=== PATIENT | female | born 1965 | race Caucasian/White ===

== ENCOUNTER 2020-09-08 09:04 | Outpatient (CLI) | payer BC, SELFPAY ==
--- NOTE | ~2020-09-08 | MM_ITS ---
EXAMINATION: MM screening [facility] BI w jeremie HISTORY: Screening mammogram TECHNIQUE: Craniocaudal and mediolateral oblique 3-D tomosynthesis images were obtained and synthetic 2-D images were generated. CAD analysis was submitted and interpreted. COMPARISON: 08/11/2019, 01/20/2018, 01/06/2015 BREAST PARENCHYMAL COMPOSITION: There are scattered areas of fibroglandular density. FINDINGS: There is no evidence of suspicious mass, calcification, or architectural distortion to sugg est malignancy in either breast. There has been no suspicious interval change. IMPRESSION: 1. No mammographic evidence of malignancy. 2. Recommend routine screening mammography in one year. BI-RADS Category 1: Negative Reviewed, dictated and finalized at location A. WORKER
== END 2020-09-08 09:05 | disposition home or self-care (01) ==
LOC: ANHIMG 09:08
PROVIDERS: PCP Internal Medicine; Visit Provider Nurse Practitioner Obstetrics & Gynecology
DX: Z12.31 Encounter for screening mammogram for malignant neoplasm of breast (principal)
CPT/HCPCS: 77063; 77067

== ENCOUNTER 2020-09-09 08:51 | Outpatient (CLI) | payer BC, SELFPAY ==
--- NOTE | ~2020-09-09 | XR_ITS ---
EXAMINATION: XR lumbar spine 2-3V DATE: 09/09/2020 09:15 INDICATION: Low back pain. TECHNIQUE: 3 views of lumbar spine were obtained. COMPARISON: None. FINDINGS: There is 26 degrees levoscoliosis of lumbar spine. Vertebral body heights are normal. There is severely decreased disc height at L2-L3. There are endplate osteophytes at all levels. There is m ultilevel facet joint osteoarthritis, severe on the right at L3-L4. There is an intrauterine device i n expected position. IMPRESSION: 1. Severe lumbar spondylosis. 2. Lumbar levoscoliosis. Reviewed, dictated and finalized at location A. TUTOR
--- NOTE | ~2020-09-09 | XR_ITS ---
EXAMINATION: XR hip RT min 2V DATE: 09/09/2020 09:15 INDICATION: Right hip pain. TECHNIQUE: 3 views of right hip were obtained. COMPARISON: None. FINDINGS: Bone alignment is normal. No fracture. There is mild right hip osteoarthritis characterized by a tiny marginal osteophyte. There is an intrauterine device in expected position. IMPRESSION: 1. Mild right hip osteoarthritis. Reviewed, dictated and finalized at location A. SKILLS COORDINATOR
== END 2020-09-09 08:52 | disposition home or self-care (01) ==
PROVIDERS: PCP Internal Medicine; Visit Provider Nurse Practitioner
DX: M47.816 Spondylosis without myelopathy or radiculopathy, lumbar region (principal); M16.11 Unilateral primary osteoarthritis, right hip; M41.9 Scoliosis, unspecified
CPT/HCPCS: 72100; 73502

== ENCOUNTER → 2021-06-28 14:52 | Outpatient (CLI) | payer BC, SELFPAY ==
--- NOTE | ~2021-06-28 | XR_ITS ---
EXAMINATION: XR hip RT 2V w AP pelvis DATE: 06/28/2021 15:14 INDICATION: Right hip pain. TECHNIQUE: An anteroposterior view of the pelvis and 2 views of right hip were obtained. COMPARISON: Right hip radiographs 09/09/2020 FINDINGS: There is lumbar levoscoliosis and mild spondylosis. No fracture. There is mild osteoarthrit is of the hips. IMPRESSION: 1. Mild osteoarthritis of the hips. Reviewed, dictated and finalized at location A.
== END ==
PROVIDERS: Visit Provider Nurse Practitioner Adult Health
DX: M17.11 Unilateral primary osteoarthritis, right knee (principal); M47.816 Spondylosis without myelopathy or radiculopathy, lumbar region; M41.9 Scoliosis, unspecified
CPT/HCPCS: 73502

== ENCOUNTER 2021-11-03 07:56 | Outpatient (CLI) | payer OTHER, SELFPAY ==
--- NOTE | ~2021-11-03 | MM_ITS ---
EXAMINATION: MM screening [facility] BI w jeremie HISTORY: Screening mammogram TECHNIQUE: Craniocaudal and mediolateral oblique 3-D tomosynthesis images were obtained and synthetic 2-D images were generated. CAD analysis was submitted and interpreted. COMPARISON: 09/08/2020, 08/11/2019, 01/20/2018 BREAST PARENCHYMAL COMPOSITION: There are scattered areas of fibroglandular density. FINDINGS: There is no evidence of suspicious mass, calcification, or architectural distortion to sugg est malignancy in either breast. There has been no suspicious interval change. IMPRESSION: 1. No mammographic evidence of malignancy. 2. Recommend routine screening mammography in one year. BI-RADS Category 1: Negative Reviewed, dictated and finalized at location A. ON INVESTIGATOR
== END 2021-11-03 07:57 | disposition home or self-care (01) ==
LOC: ANHIMG 07:59
PROVIDERS: PCP Internal Medicine; Visit Provider Nurse Practitioner Obstetrics & Gynecology
DX: Z12.31 Encounter for screening mammogram for malignant neoplasm of breast (principal)
CPT/HCPCS: 77063; 77067

== ENCOUNTER 2022-06-04 10:11 | Emergency (ER) | payer OTHER, SELFPAY ==
--- NOTE | ~2022-06-04 | XR_ITS ---
XR foot RT min 3V 06/04/2022 11:38 INDICATION: Right foot pain PROCEDURE: 4 views right foot COMPARISON: No prior studies for comparison. FINDINGS: Fracture, dislocation or subluxation is not identified. Lisfranc joint intact. Mild osteoar thritis of the first MTP joint. The soft tissues appear within normal limits. No foreign bodies are identified. There is a small degenerative calcaneal enthesophyte. IMPRESSION: 1: NO ACUTE BONE OR JOINT ABNORMALITY IDENTIFIED. Reviewed, dictated and finalized at location A.
--- NOTE | ~2022-06-04 | XR_ITS ---
EXAMINATION: XR foot LT min 3V DATE: 06/04/2022 11:32 INDICATION: Left foot injury. TECHNIQUE: 4 views of left foot were obtained. COMPARISON: None. FINDINGS: Bone alignment is normal. No fracture. There is mild osteoarthritis of first metatarsophala ngeal joint. There is an enthesophyte at plantar aspect of calcaneal tuberosity. IMPRESSION: 1. Mild osteoarthritis of first metatarsophalangeal joint. Reviewed, dictated and finalized at location A.
[2022-06-04 10:20] VITALS: BP 152/84; PULSE 69; RESP 16; TEMP 36.4; O2SAT 100
--- NOTE | 2022-06-04 10:25 | ED.LOWEXIN ---
HPI - Extremity Injury (Lower) General Chief Complaint: Extremity Injury, Lower <Anahy Cruz APRN - Last Filed: 06/04/22 15:06> Stated Complaint: Feet Pain <Anahy Cruz APRN - Last Filed: 06/04/22 15:06> Time Seen by Provider: 06/04/22 10:20 <Anahy Cruz APRN - Last Filed: 06/04/22 15:06> Source: patient, RN notes reviewed and old records reviewed <Anahy Cruz APRN - Last Filed: 06/04/22 15:06> Mode of arrival: ambulatory <Anahy Cruz APRN - Last Filed: 06/04/22 15:06> Limitations: no limitations <Anahy Cruz APRN - Last Filed: 06/04/22 15:06> History of Present Illness HPI Narrative: 57-year-old female presents to the [facility] with bilateral feet pain after rolling her ankle and falling onto her feet last night. Patient is complaining of left lateral fifth metatarsal pain. Right first metatarsal pain Has taken Tylenol for her symptoms. Sensation intact in all 5 toes bilaterally. Positive pedal pulses bilaterally. Capillary refill under 2 seconds. Small abrasion noted to the lateral aspect fifth toe. Patient reports last Tdap 1 year ago <Anahy Cruz APRN - Last Filed: 06/04/22 15:06> MD complaint: foot injury (Bilateral) <Anahy Cruz APRN - Last Filed: 06/04/22 15:06> Onset (ago): day(s) (1) <Anahy Cruz APRN - Last Filed: 06/04/22 15:06> Related Data Home Medications: Home Medications Medication Instructions Recorded Confirmed biotin 1 mg capsule 1 mg PO DAILY 09/08/20 11/03/21 <Anahy Cruz APRN - Last Filed: 06/04/22 15:06> Allergies/Adverse Reactions: Allergies Allergy/AdvReac Type Severity Reaction Status Date / Time codeine Allergy Unknown hives Verified 06/04/22 10:49 hydrocodone Allergy Unknown nausea Verified 06/04/22 10:49 Penicillins Allergy Unknown rash Verified 06/04/22 10:49 Sulfa (Sulfonamide Allergy Unknown rash Verified 06/04/22 10:49 Antibiotics) 1. [id number] Allergy Unknown hot flashes Uncoded 06/04/22 10:49 ERYTHROMYCIN (Generic Allergy unknown Uncoded 06/04/22 10:49 Allergy) MACROLIDES Allergy unknown Uncoded 06/04/22 10:49 <Anahyraquel Cruz MEAT SUPERVISOR - Last Filed: 06/04/22 15:06> Review of Systems Review of Systems: All systems reviewed & are unremarkable except as noted in HPI and below <Anahy Cruz, MEAT SUPERVISOR - Last Filed: 06/04/22 15:06> Constitutional: Constitutional: Reports no additional constitutional complaints, Denies chills and Denies fever(s) <Anahyraquel Cruz, MEAT SUPERVISOR - Last Filed: 06/04/22 15:06> Eyes: Eyes: Reports no additional eye complaints <Anahyraquel Cruz, MEAT SUPERVISOR - Last Filed: 06/04/22 15:06> ENT: Reports system reviewed and no additional complaints, except as documented <Anahy Cruz, MEAT SUPERVISOR - Last Filed: 06/04/22 15:06> Cardiovascular: Cardiovascular: Reports no additional cardiovascular complaints <Anahy Cruz, MEAT SUPERVISOR - Last Filed: 06/04/22 15:06> Respiratory: Respiratory: Reports no additional respiratory complaints <Anahyraquel Cruz, MEAT SUPERVISOR - Last Filed: 06/04/22 15:06> Gastrointestinal: Gastrointestinal: Reports no additional gastrointestinal complaints <Anahyraquel Cruz, MEAT SUPERVISOR - Last Filed: 06/04/22 15:06> Musculoskeletal: Musculoskeletal: Reports as per HPI, Reports arthralgias and Reports joint swelling <Anahyraquel Cruz, MEAT SUPERVISOR - Last Filed: 06/04/22 15:06> Integumentary/Breasts: Skin/Breast: Reports as per HPI <Anahy Cruz, MEAT SUPERVISOR - Last Filed: 06/04/22 15:06> Comments: Abrasion fifth toe, lateral aspect <Anahy Cruz MEAT SUPERVISOR - Last Filed: 06/04/22 15:06> Neurologic: Reports system reviewed and no additional complaints, except as documented <Anahy Cruz, MEAT SUPERVISOR - Last Filed: 06/04/22 15:06> Psychiatric: Psychiatric: Reports no additional psychiatric complaints <Anahy Cruz APRN - Last Filed: 06/04/22 15:06> Allergic/Immunologic: Allergic/Immunologic: Reports no additional allergic/immunologic complaints <Anahy Cruz, A
== END 2022-06-04 12:08 | disposition home or self-care (01) ==
PROVIDERS: Emergency Provider Nurse Practitioner; PCP Internal Medicine
DX: S90.415A Abrasion, left lesser toe(s), initial encounter (principal); W19.XXXA Unspecified fall, initial encounter; S90.32XA Contusion of left foot, initial encounter; S90.31XA Contusion of right foot, initial encounter; M19.072 Primary osteoarthritis, left ankle and foot; R01.1 Cardiac murmur, unspecified; E78.00 Pure hypercholesterolemia, unspecified; I10 Essential (primary) hypertension
CPT/HCPCS: 73630; 99214; G0463

== ENCOUNTER 2022-07-11 12:54 | Outpatient (CLI) | payer OTHER, SELFPAY ==
[2022-07-11 18:35] LABS: Basophils Percent Auto 0.4 % (0.2-1.2); Eosinophils Absolute Auto 0.1 K/mm3 (0-0.3); Eosinophils Percent Auto 1.5 % (0-4.4); Hematocrit 36.5 % (37.0-47.0); Hemoglobin 12.2 g/dL (12.0-15.0); Immature Granulocyte Absolute 0.02 K/mm3 (0.00-0.031); Immature Granulocyte Percent A 0.3 % (0-0.5); Lymphocytes Absolute Auto 2.69 K/mm3 (0.9-3.2); Lymphocytes Percent Auto 39.9 % (18.3-44.2); Mean Corpuscular HGB Conc 33.4 g/dl (32-36); Mean Corpuscular Hemoglobin 32.7 pg (26-34); Mean Corpuscular Volume 97.9 fl (80-100); Mean Platelet Volume 11.4 fl (7.4-10.4); Monocytes Absolute Auto 0.5 K/mm3 (0.1-0.6); Monocytes Percent Auto 6.7 % (2.6-8.5); Neutrophils Absolute Auto 3.5 K/mm3 (1.3-6.7); Neutrophils Percent Auto 51.2 % (45.5-73.1); Platelet Count Result 199 k/mm3 (150-375); Red Blood Count 3.73 M/mm3 (4.2-5.4); Red Cell Distribution Width 12.6 % (11.5-14.5); White Blood Count 6.7 K/mm3 (4.5-10.0)
[2022-07-11 18:39] LABS: Alanine Aminotransferase 87 U/L (6-35); Albumin Level 4.6 g/dL (3.5-5.1); Alkaline Phosphatase 67 U/L (38-126); Anion Gap 14 mmol/L (8-16); Aspartate Amino Transferase 70 U/L (14-36); Bilirubin,Total 0.4 mg/dL (0.2-1.3); Blood Urea Nitrogen 13 mg/dL (7-17); Calcium 9.1 mg/dL (8.4-10.2); Carbon Dioxide 28 mmol/L (22-30); Chloride 100 mmol/L (98-107); Estimated Glomerular Filt Rate > 60; Glucose 88 mg/dL (65-110); Potassium 3.8 mmol/L (3.4-5.0); Sodium 142 mmol/L (137-145)
[2022-07-11 18:56] LABS: Rheumatoid Factor < 8.6 IU/ML (<12)
[2022-07-11 19:09] LABS: Erythrocyte Sedimentation Rate 18 mm/hr (0-20)
[2022-07-15 08:46] LABS: ANA Cascade Screen Negative (Negative)
== END 2022-07-11 12:55 | disposition home or self-care (01) ==
LOC: ANHGOSHLAB 12:56
PROVIDERS: PCP Internal Medicine; Visit Provider Nurse Practitioner
DX: M25.50 Pain in unspecified joint (principal); R51.9 Headache, unspecified; Z51.81 Encounter for therapeutic drug level monitoring; Z79.899 Other long term (current) drug therapy
CPT/HCPCS: 36415; 80053; 84443; 85025; 85652; 86038; 86430

== ENCOUNTER 2022-07-31 14:00 | Outpatient (CLI) | payer OTHER, SELFPAY ==
--- NOTE | ~2022-07-31 | MR_ITS ---
EXAMINATION: MR brain/brain stem wo/w con DATE: 07/31/2022 14:52 INDICATION: Headache. TECHNIQUE: Magnetic resonance imaging (MRI) of the brain and brainstem was performed without and with 12 mL MultiHance intravenous contrast. COMPARISON: None. FINDINGS: There are scattered areas of nonspecific increased T2-weighted signal intensity in the cere bral white matter. There is no intracranial hemorrhage, acute infarction, or abnormal intracranial ma ss lesion. The ventricles are normal in size. There is mild mucosal thickening in sphenoid sinus. The orbits are normal. The mastoid air cells are normal. IMPRESSION: 1. Mild nonspecific cerebral white matter disease, which likely represents chronic small vessel ische renetta disease. Reviewed, dictated and finalized at location A. IMPRESSION: 1. Mild nonspecific cerebral white matter disease, which likely represents compliance investigator ivett small vessel ischemic disease.
== END 2022-07-31 14:01 ==
PROVIDERS: PCP Internal Medicine; Visit Provider Nurse Practitioner
DX: R51.9 Headache, unspecified (principal); R90.82 White matter disease, unspecified
CPT/HCPCS: 70553; A9577

== ENCOUNTER 2022-08-08 09:17 | Outpatient (CLI) | payer OTHER, SELFPAY | END 2022-08-08 09:18 | disposition home or self-care (01) | LOC: ANHGOSHLAB 09:20 | PROVIDERS: PCP Internal Medicine; Visit Provider Nurse Practitioner | DX: R74.8 Abnormal levels of other serum enzymes (principal); M25.50 Pain in unspecified joint | CPT/HCPCS: 36415 ==

== ENCOUNTER 2023-06-07 01:27 | Day surgery (SDC) | payer OTHER, SELFPAY ==
[2023-05-29 12:51] VITALS: BMI 26.6
[2023-06-07 08:10] VITALS: BP 149/76; PULSE 73; RESP 18; TEMP 36.2; O2SAT 100; BMI 26.9
[2023-06-07] MEDS: LACTATED RINGERS 1,000 ML 150 ML IV CONT (08:26)
--- NOTE | 2023-06-07 08:45 | PM.HPGS ---
History of Present Illness History of Present Illness Consent: Risks, benefits, and alternatives have been discussed and questions answered. Patient agrees to proceed with procedure. Chief complaint: neoplasm screening Narrative: Ina Metzger is a 58 year old female Presents for screening colonoscopy. Patient's current weight appetite and bowel movements are normal. Patient denies abdominal pain. She has had no bleeding. Family history noncontributory. Review of Systems Review of Systems: review of systems noncontributory. [facility] Past Medical History Medical History Alcohol abuse Anxiety Depression Heart murmur Hypercholesterolemia Hypertension Tachycardia Vitamin D deficiency Family History Family History Mother Diabetes mellitus Hypertension Father , September 2020 Family history of coronary artery disease Social History Social History Social History: Caffeine-non Smoking status: Never smoker Alcohol intake: current Drinks per week: 6 Alcohol use details: BEER Substance use: never Substance use type: does not use Living arrangements: with family Spiritual care concerns: No Meds Home Medications and Allergies Home Medications Medication Instructions Recorded Confirmed Type citalopram 10 mg tablet 10 mg PO DAILY #90 tabs 02/07/23 06/07/23 Rx ezetimibe 10 mg tablet (Zetia) 10 mg PO DAILY #90 tabs 02/07/23 06/07/23 Rx losartan 100 mg tablet 100 mg PO DAILY #90 tabs 02/07/23 06/07/23 Rx hydrochlorothiazide 12.5 mg tablet 12.5 mg PO DAILY #30 tabs 05/30/23 06/07/23 Rx Allergies Allergy/AdvReac Type Severity Reaction Status Date / Time naproxen Allergy Mild Rash Verified 06/07/23 08:15 codeine Allergy Unknown hives Verified 06/07/23 08:15 hydrocodone Allergy Unknown nausea Verified 06/07/23 08:15 Penicillins Allergy Unknown rash Verified 06/07/23 08:15 Sulfa (Sulfonamide Allergy Unknown rash Verified 06/07/23 08:15 Antibiotics) sumatriptan [From Imitrex] AdvReac Mild Sore jaw Verified 06/07/23 08:15 1. cwfejn-vnwseeonl-ftfmod Allergy Unknown hot flashes Uncoded 06/07/23 08:15 ERYTHROMYCIN (Generic Allergy unknown Uncoded 06/07/23 08:15 Allergy) MACROLIDES Allergy unknown Uncoded 06/07/23 08:15 Vital Signs Vital Signs - 24 hr 06/07/23 08:10 Temperature 97.2 F L Pulse Rate 73 Respiratory Rate 18 Blood Pressure 149/76 H Pulse Oximetry 100 Oxygen Delivery Room Air Exam Narrative: Physical exam reveals patient to be alert. Vital signs stable. HEENT exam is unremarkable. Patient is anicteric. Lungs are clear to auscultation and percussion. Heart is without murmur or extra sounds. Abdomen bowel sounds are present soft nontender with no organomegaly. Digital external rectal exam is normal. Assessment and Plan Assessment and plan (1) Encounter for screening colonoscopy: Code(s): Z12.11 - Encounter for screening for malignant neoplasm of colon Status: Acute Assessment and Plan: Patient presents today for screening colonoscopy. She appears to be at average risk for colon polyps. Further recommendations may be given after endoscopy.
--- NOTE | 2023-06-07 08:52 | WPDANESEPPF ---
Anes - Initial Pre Proc Eval Procedure: Operation Date: 06/07/23 09:30 Proposed Procedures p Screening Colonoscopy - Elijah Neumann MD Date/Time: 06/07/23 08:52 Surgeon: Elijah Neumann MD Pre Op Diagnosis: neoplasm screening Patient Data Age: 58 Gender: F Height: 1.55 m Weight: 64.6 kg Last Vital Signs Temp 97.2 F L 06/07/23 08:10 Pulse 73 06/07/23 08:10 Resp 18 06/07/23 08:10 BP 149/76 H 06/07/23 08:10 Pulse Ox 100 06/07/23 08:10 O2 Del Method Room Air 06/07/23 08:10 Allergies Allergy/AdvReac Type Severity Reaction Status Date / Time naproxen Allergy Mild Rash Verified 06/07/23 08:15 codeine Allergy Unknown hives Verified 06/07/23 08:15 hydrocodone Allergy Unknown nausea Verified 06/07/23 08:15 Penicillins Allergy Unknown rash Verified 06/07/23 08:15 Sulfa (Sulfonamide Allergy Unknown rash Verified 06/07/23 08:15 Antibiotics) sumatriptan [From Imitrex] AdvReac Mild Sore jaw Verified 06/07/23 08:15 1. grztrx-zjzkecerm-swzejd Allergy Unknown hot flashes Uncoded 06/07/23 08:15 ERYTHROMYCIN (Generic Allergy unknown Uncoded 06/07/23 08:15 Allergy) MACROLIDES Allergy unknown Uncoded 06/07/23 08:15 Home Medications Medication Instructions Recorded Confirmed Type citalopram 10 mg tablet 10 mg PO DAILY #90 tabs 02/07/23 06/07/23 Rx ezetimibe 10 mg tablet (Zetia) 10 mg PO DAILY #90 tabs 02/07/23 06/07/23 Rx losartan 100 mg tablet 100 mg PO DAILY #90 tabs 02/07/23 06/07/23 Rx hydrochlorothiazide 12.5 mg tablet 12.5 mg PO DAILY #30 tabs 05/30/23 06/07/23 Rx Patient hx anesthesia problems: none Family hx anesthesia problems: none Results Review: All pre-operative results and documents have been reviewed as part of the pre-operative evaluation. [facility] Past Medical History Medical History Alcohol abuse Anxiety Depression Heart murmur Hypercholesterolemia Hypertension Tachycardia Vitamin D deficiency Family History Family History Mother Diabetes mellitus Hypertension Father , September 2020 Family history of coronary artery disease Social History Social History Social History: Caffeine-non Smoking status: Never smoker Alcohol intake: current Drinks per week: 6 Alcohol use details: BEER Substance use: never Substance use type: does not use Living arrangements: with family Spiritual care concerns: No Anes - Eval Final PreProcedure Day of Procedure 06/07/23 08:52 Patient weight: normal Heart: regular rate and rhythm Lungs: clear to auscultation Airway: Mallampati scale class II Neurological: alert and oriented Last oral intake: >/= 8 hours ASA classification: III Emergent: no Anesthetic plan: proceed Anesthesia type and monitoring: general GIVS and standard monitoring Results Review: All pre-operative results and documents have been reviewed as part of the pre-operative evaluation. Informed Consent: The patient's anesthetic plan and its attendant risks and benefits were discussed with the patient/family/POA. Questions were solicited and answers provided to the satisfaction of the patient/family/POA.
[2023-06-07] MEDS: SIMETHICONE ORAL SUSPENSION 20 MG/0.3 ML 30 ML BOTTLE 0.6 ML IRRIGATION (09:29)
[2023-06-07 09:39] VITALS: BP 134/74; PULSE 72; RESP 20; O2SAT 100
[2023-06-07 09:49] VITALS: BP 146/83; PULSE 60; RESP 16; O2SAT 100
[2023-06-07 09:59] VITALS: BP 160/85; PULSE 56; RESP 16; O2SAT 100
== END 2023-06-07 10:14 | disposition home or self-care (01) ==
PROVIDERS: PCP Internal Medicine; Visit Provider Internal Medicine Gastroenterology
PROC: 0DJD8ZZ Inspection of Lower Intestinal Tract, Via Natural or Artificial Opening Endoscopic (ICD-10-PCS; CPT 45378; principal; 2023-06-07 09:30)
DX: Z12.11 Encounter for screening for malignant neoplasm of colon (principal); I10 Essential (primary) hypertension; F41.9 Anxiety disorder, unspecified; F32.A Depression, unspecified; E78.00 Pure hypercholesterolemia, unspecified
CPT/HCPCS: 45378; J2704; J7120

== ENCOUNTER 2023-07-31 08:31 | Outpatient (CLI) | payer OTHER, SELFPAY ==
--- NOTE | ~2023-07-31 | MM_ITS ---
EXAMINATION: MM screening [facility] BI w jeremie HISTORY: Screening mammogram TECHNIQUE: Craniocaudal and mediolateral oblique 3-D tomosynthesis images were obtained and synthetic 2-D images were generated. CAD analysis was submitted and interpreted. COMPARISON: 11/03/2021, 09/08/2020, 08/11/2019 BREAST PARENCHYMAL COMPOSITION: There are scattered areas of fibroglandular density. FINDINGS: No suspicious mass, calcification, or architectural distortion are identified in either nydia ast to suggest malignancy. There has been no suspicious interval change. IMPRESSION: 1. No mammographic evidence of malignancy. 2. Recommend routine screening mammography in one year. BI-RADS Category 1: Negative Reviewed, dictated and finalized at location A.
== END 2023-07-31 08:32 | disposition home or self-care (01) ==
LOC: ANHIMG 08:34
PROVIDERS: PCP Internal Medicine; Visit Provider Nurse Practitioner Obstetrics & Gynecology
DX: Z12.31 Encounter for screening mammogram for malignant neoplasm of breast (principal)
CPT/HCPCS: 77063; 77067

== ENCOUNTER 2024-05-28 07:54 | Outpatient (CLI) | payer OTHER, SELFPAY ==
--- NOTE | ~2024-05-28 | US_ITS ---
Limited Abdominal Sonogram: Real-time sonographic imaging of the right upper quadrant was performed. Clinical History: Abnormal serum enzyme levels Findings: The liver appears echogenic, with no evidence of mass lesion or bile duct dilatation. Main portal vein demonstrates normal direction of flow. The gallbladder is partially distended, and appea rs normal with no evidence of gallstone or wall thickening. The common bile duct measures 6 mm. The visualized pancreas, aorta, and IVC are unremarkable. Right kidney measures 8.9 cm in length, without hydronephrosis. Impression: Diffuse fatty infiltration of the liver. Reviewed, dictated and finalized at location . Impression: Diffuse fatty infiltration of the liver.
== END 2024-05-28 07:55 ==
LOC: MICIMG 07:55
PROVIDERS: PCP Internal Medicine; Visit Provider Nurse Practitioner
DX: R74.8 Abnormal levels of other serum enzymes (principal); K76.0 Fatty (change of) liver, not elsewhere classified
CPT/HCPCS: 76705

== ENCOUNTER 2024-08-13 09:24 | Outpatient (CLI) | payer OTHER, SELFPAY ==
--- NOTE | ~2024-08-13 | XR_ITS ---
Lumbosacral Spine: AP and lateral views Clinical History: Pain Findings: Levoscoliosis noted. No fracture identified. There is grade 1 retrolisthesis of L2 over L3, with moderate to advanced degenerative disc narrowing at L2-L3. There is advanced facet arthropathy throughout the lumbar spine. The sacroiliac joints are normally outlined. Impression: Levoscoliosis with grade 1 retrolisthesis of L2 over L3. Additional degenerative change, as above. Reviewed, dictated and finalized at location . Impression: Levoscoliosis with grade 1 retrolisthesis of L2 over L3. Additional degenerative change, as above.
--- NOTE | ~2024-08-13 | XR_ITS ---
XR hip RT min 2V 08/13/2024 09:46 Indication: Right hip pain Procedure: 2 views right hip Comparison: 06/28/2021 Findings: There is no evidence for fracture, subluxation or dislocation. There is mild osteoarthritis of the right hip. No soft tissue abnormality. No foreign bodies. Impression: 1: Mild osteoarthritis of the right hip. Reviewed, dictated and finalized at location B. Impression: 1: Mild osteoarthritis of the right hip.
== END 2024-08-13 09:25 | disposition home or self-care (01) ==
PROVIDERS: PCP Internal Medicine; Visit Provider Nurse Practitioner
DX: M16.11 Unilateral primary osteoarthritis, right hip (principal); M41.86 Other forms of scoliosis, lumbar region
CPT/HCPCS: 72100; 73502

== ENCOUNTER 2024-08-28 12:48 | Outpatient (CLI) | payer OTHER, SELFPAY | END 2024-08-28 12:49 | disposition home or self-care (01) | PROVIDERS: PCP Internal Medicine; Visit Provider Nurse Practitioner | DX: H93.19 Tinnitus, unspecified ear (principal); H90.3 Sensorineural hearing loss, bilateral | CPT/HCPCS: 92557; 92567 ==

== ENCOUNTER 2024-12-31 10:42 | Outpatient (CLI) | payer OTHER, SELFPAY ==
--- NOTE | ~2024-12-31 | CT_ITS ---
EXAMINATION: CT lumbar spine wo con DATE: 12/31/2024 11:08 INDICATION: Other idiopathic scoliosis, thoracolumbar region. TECHNIQUE: Computed tomography (CT) of the lumbar spine was performed without intravenous contrast. A utomated exposure control and iterative reconstruction technique were employed. The dose-length produ ct was 532.74 mGy-cm. COMPARISON: Lumbar spine MRI 11/30/2024 FINDINGS: There is 31 degrees levoscoliosis of lumbar spine. Vertebral body heights are normal. There is severely decreased disc height at L2-L3. The following disc levels are specifically discussed: L1-L2: The disc is bulging. There is mild right and moderate left facet joint osteoarthritis. There i s mild left neural foraminal stenosis. There is mild central canal stenosis. L2-L3: The disc is bulging. There is mild bilateral facet joint osteoarthritis. There is mild bilater al neural foraminal stenosis. There is mild central canal stenosis. L3-L4: The disc is bulging. There is severe bilateral facet joint osteoarthritis. There is mild bilat eral neural foraminal stenosis. There is mild central canal stenosis. L4-L5: The disc is bulging. There is mild right and severe left facet joint osteoarthritis. There is mild bilateral neural foraminal stenosis. There is mild central canal stenosis. L5-S1: The disc is bulging. There is severe bilateral facet joint osteoarthritis. There is moderate r ight and mild left neural foraminal stenosis. There is mild central canal stenosis. IMPRESSION: 1. Severe lumbar spondylosis. 2. Lumbar levoscoliosis. Reviewed, dictated and finalized at location A. HOUSE MANAGER
--- NOTE | ~2024-12-31 | MR_ITS ---
EXAMINATION: MR cervical spine wo con DATE: 12/31/2024 11:21 INDICATION: Fusion of cervical region. Neck pain. TECHNIQUE: Magnetic resonance imaging (MRI) of the cervical spine was performed without intravenous c ontrast. COMPARISON: CT cervical spine 12/31/2024 FINDINGS: Alignment is normal. There are changes of anterior fusion procedure from C5 to C7 with heal ed interbody bone graft and anterior plate and screws. Vertebral body heights are normal. There is mi ldly decreased disc height at C4-C5 and moderately decreased disc height at C7-T1. The spinal cord si gnal intensity is normal. The following disc levels are specifically discussed: C2-C3: The disc does not extend beyond the endplate margin. There is mild left uncovertebral joint os teoarthritis. There is severe bilateral facet joint osteoarthritis. There is mild left neural foramin al stenosis. There is no central canal stenosis. C3-C4: The disc is bulging. There is mild bilateral uncovertebral joint osteoarthritis. There is nicolás re bilateral facet joint osteoarthritis. There is mild bilateral neural foraminal stenosis. There is mild central canal stenosis. C4-C5: The disc is bulging. There is severe bilateral uncovertebral joint osteoarthritis. There is se shaylee bilateral facet joint osteoarthritis. There is moderate bilateral neural foraminal stenosis. The re is mild central canal stenosis. C5-C6: There is mild bilateral uncovertebral joint hypertrophy. There is no facet joint hypertrophy. There is no neural foraminal stenosis. There is no central canal stenosis. C6-C7: There is mild left uncovertebral joint hypertrophy. There is no facet joint hypertrophy. There is no neural foraminal stenosis. There is no central canal stenosis. C7-T1: The disc is bulging. There is mild bilateral uncovertebral joint osteoarthritis. There is nicolás re bilateral facet joint osteoarthritis. There is mild bilateral neural foraminal stenosis. There is mild central canal stenosis. IMPRESSION: 1. Moderate cervical spondylosis. 2. Anterior fusion procedure from C5 to C7. Reviewed, dictated and finalized at location A. AMMUNITION INSPECTOR
--- NOTE | ~2024-12-31 | CT_ITS ---
EXAMINATION: CT cervical spine wo con DATE: 12/31/2024 11:08 INDICATION: Fusion of cervical region. Other idiopathic scoliosis, thoracolumbar region. TECHNIQUE: Computed tomography (CT) of the cervical spine was performed without intravenous contrast. Automated exposure control and iterative reconstruction technique were employed. The dose-length pro duct was 196.15 mGy-cm. COMPARISON: None FINDINGS: There is mild scarring at the lung apices. There is mild kyphosis of upper cervical spine. There are changes of anterior fusion procedure from C5 to C7 with healed interbody bone graft and ant erior plate and screws. There is mild chronic height loss of T1 vertebral body. There is mildly decre ased disc height at C4-C5 and moderately decreased disc height at C7-T1. The following disc levels ar e specifically discussed: C2-C3: There is mild left uncovertebral joint osteoarthritis. There is severe bilateral facet joint o steoarthritis. There is mild left neural foraminal stenosis. There is no central canal stenosis. C3-C4: There is mild bilateral uncovertebral joint osteoarthritis. There is severe bilateral facet lalitha int osteoarthritis. There is no neural foraminal stenosis. There is mild central canal stenosis. C4-C5: There is moderate bilateral uncovertebral joint osteoarthritis. There is severe bilateral face t joint osteoarthritis. There is mild bilateral neural foraminal stenosis. There is mild central paulo l stenosis. C5-C6: There is no uncovertebral joint hypertrophy. There is moderate facet joint hypertrophy. There is no neural foraminal stenosis. There is no central canal stenosis. C6-C7: There is mild left uncovertebral joint hypertrophy. There is no facet joint osteoarthritis. Th ere is mild left neural foraminal stenosis. There is mild central canal stenosis. C7-T1: There is moderate bilateral uncovertebral joint osteoarthritis. There is severe bilateral face t joint osteoarthritis. There is mild bilateral neural foraminal stenosis. There is mild central paulo l stenosis. IMPRESSION: 1. Moderate cervical spondylosis. 2. Anterior fusion procedure from C5 to C7. Reviewed, dictated and finalized at location A. [facility]
== END 2024-12-31 10:43 | disposition home or self-care (01) ==
LOC: MICIMG 10:43
PROVIDERS: PCP Internal Medicine
DX: M41.25 Other idiopathic scoliosis, thoracolumbar region (principal); M46.22 Osteomyelitis of vertebra, cervical region; Z98.1 Arthrodesis status; Z98.890 Other specified postprocedural states
CPT/HCPCS: 72125; 72131; 72141

== ENCOUNTER 2025-05-31 15:30 | Outpatient (RCR) | payer OTHER, SELFPAY ==
--- NOTE | 2025-04-07 11:02 | OPREHPOC ---
Outpatient Therapy Plan of Care This is a Multidisciplinary Plan of Care that may contain components documented by all disciplines (PT, OT, and ST.) PT Problem 1 PT Problem #1 Knowledge Deficit PT Goal 1 Goal / Goal Update 1* independent with HEP 2* demonstrate correct body mechanics with transfers and lifting from floor Target Visit 10 PT Problem 2 PT Problem #2 Pain PT Goal 1 Goal / Goal Update 1* pt report pain rating at worst of 5/10 2* pt report no awakening from sleep due to pain 3* radicular pain to R knee at worst Target Visit 10 PT Problem 3 PT Problem #3 Impaired Strength PT Goal 1 Goal / Goal Update increase strength of legs, to improve mobility and transfer skills * 1 R single leg standing x 20 seconds with good stability 2* standing bilateral PF x 20 reps with good balance 3* pt able to perform side lying hip abduction bilateral x 20 reps with good stability 4* pt report no issues with dressing due to leg weakness Target Visit 10 PT Problem 4 PT Problem #4 Impaired Functional Mobility PT Goal 1 Goal / Goal Update 1* 2 minute walking test distance of 425' Target Visit 10
--- NOTE | 2025-04-07 11:02 | PTOPEVAL1 ---
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 have not been doing any back or leg exercises, not sure what to do after surgery; have been walking some; do have pool at home, but not used yet, needs to warm up more Goal: get R leg stronger to be able to dress easier and move leg; less pain with return to work; Reported Pain Level Pain Score Self Report Additional Pain Score Comments pain range in the past week: 4-910; R LE: radicular constant into thigh and intermittent to mid anterior baez; L radicular, intermittent to mid baez--not really pain but numbness and tingles ; R lateral hip and groin hurt; increase pain: sit to stand transfer, bend over decrease pain: change position, ice, arthritis tylenol and ibuprofen have problems and allergic reactions with pain meds sleeping- awaken 2x/wk due to R leg pain Assessment PT Clinical Summary Ina is s/p L 2-3 decompression, with radicular pain, numbness and tingling into R LE to mid baez. 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 She reports R leg is weaker with getting dressed and moving around. Stated the dr has referred her to pain management, but she wants to wait until doing therapy to see if she needs it. She has a pool at home and is interested in doing water exercises for fitness. Medical history includes: chronic back pain, scoliosis, cervical fusion C 5-6-7, with some recent increase in L UE radicular pain, numbness and tingling. With the evaluation: she has scoliosis/curvature of her spine; weakness of R LE with single leg standing and mat exercises; 2 minute walking test distance of 375' with increase pain rating to 5/10 ; supine R hip flexion increases hip pain; slight tightness of R anterior hip- quad with prone knee flexion. Skilled PT services are indicated for therapeutic exercises on land and aquatic to increase trunk and LE strength; modalities PRN for pain control; education for posture, HEP and body mechanics with home and work tasks. Plan of Care Interventions Aquatic Therapy,Electrical Stimulation,Hot Pack/ Cold Pack,Manual Therapy,Neuro Re-education, Patient/Caregiver Education,Therapeutic Activities ,Therapeutic Exercise,Ultrasound,Other Other Interventions taping PT Services Indicated Yes Treatment Frequency and 1-2x/wk for 10 visits Duration These treatments will address the objective and functional deficits as defined above. The patient will be advanced safely and appropriately in order for the patient to progress towards his/her prior level of function. Additional exercises will be introduced and as well as a comprehensive home exercise program upon discharge, if needed, ?to ensure carryover of functional gains achieved in the clinic. This treatment plan has been reviewed and agreement upon by the patient.
--- NOTE | 2025-05-31 16:17 | OPREHPOC ---
Outpatient Therapy Plan of Care This is a Multidisciplinary Plan of Care that may contain components documented by all disciplines (PT, OT, and ST.) PT Problem 1 PT Problem #1 Knowledge Deficit PT Goal 1 Goal / Goal Update 1* independent with HEP 2* demonstrate correct body mechanics with transfers and lifting from floor 05-31-25 d/c goals met Target Visit 10 Progress Met PT Problem 2 PT Problem #2 Pain PT Goal 1 Goal / Goal Update 1* pt report pain rating at worst of 5/10 2* pt report no awakening from sleep due to pain 3* radicular pain to R knee at worst 05-31-25 d/c goals met Target Visit 10 Progress Met PT Problem 3 PT Problem #3 Impaired Strength PT Goal 1 Goal / Goal Update increase strength of legs, to improve mobility and transfer skills * 1 R single leg standing x 20 seconds with good stability 2* standing bilateral PF x 20 reps with good balance 3* pt able to perform side lying hip abduction bilateral x 20 reps with good stability 4* pt report no issues with dressing due to leg weakness 05-31-25 d/c goals 2, 3 met Target Visit 10 Progress Partially Met PT Problem 4 PT Problem #4 Impaired Functional Mobility PT Goal 1 Goal / Goal Update 1* 2 minute walking test distance of 425' 05-31-25 d/c goal met Target Visit 10 Progress Met
--- NOTE | 2025-05-31 16:17 | PTOPDC ---
Assessment and note entered by Joanne Edgar, PT Assessment Status Discharge Diagnosis s/p L 2-3 endoscopic decompression ICD-10 Condition Codes (PT) Pain in low back M54.50,Radiculopathy, lumbar region M54.16,Encounter for other orthopedic aftercare Z47.89 Onset 02-23-25 Subjective Information feeling better; am back to work, not getting on the floor due to groin muscle on R- tight and hurts; sitting about 30 minutes then have to get up; with dressing, have problems in standing and lifting R leg to put pants on; been doing the exercises and pleased with how I am doing; able to ride passenger with her on motorcycle over the weekend and worked in the yard pulling weeds; agree with d/c from therapy and continue on her own. Reported Pain Level Pain Score Self Report Additional Pain Score Comments pain range in the past week 0-5/10; R groin area/ anterior hip; numbness over anterior thigh; R lateral hip is able to sleep through the night without awakening; increase pain: sitting 30-45 minutes, lie on R side decrease pain: change positions no pain meds Assessment PT Clinical Summary Glenda has received 8 PT sessions. With today's assessment: reports pain range of 0-5/10 radicular pain to anterior hip and lateral hip and numbness in anterior thigh; self assessment with LE functional scale rating of 38% limitation in activity level; increase strength of R hip and LE; 2 minute walking test distance of 470'; able to transfer on/off floor with use of UE's on mat; at home, reports issues/ unable to standing on L leg and lifting R leg into pants. Education completed for HEP, posture and body mechanics. The goals were partially met. Discharge PT services. She is to continue with her HEP and monitoring activity to manage pain. Plan of Care PT Services Indicated No
== END 2025-05-31 17:25 | disposition home or self-care (01) ==
LOC: ANHPT 15:30
PROVIDERS: PCP Internal Medicine
DX: M54.50 Low back pain, unspecified (principal); M54.16 Radiculopathy, lumbar region
CPT/HCPCS: 97110; 97113; 97140; 97161; 97530

== ENCOUNTER 2025-07-21 09:10 | Outpatient (CLI) | payer OTHER, SELFPAY ==
--- OUTSIDE RECORDS SUMMARY | 2025-07-21 09:48 | XMS_ITS | Clinical Summary ---
Author Organization [facility] Medical Office Building [address] Address [address] [place] [address] Care Team Providers Care Assembling Fabricator Name Role Phone Piotr Ortiz DO Primary Care Provider [phone] Allergies Active Allergy Reactions Criticality Noted Date Comments Codeine Rash Medium 12/11/2024 Penicillins Rash,Urticaria Medium Povidone-Iodine Hives,Shortness of breath,Swelling High 02/10/2025 Shellfish Containing Products Anaphylaxis High Sulfa Nausea & Vomiting Low 12/11/2024 Medications atorvastatin (LIPITOR) 10 mg tabletIndications: hyperlipidemia Take 1 tablet (10 mg total) by mouth teaching specialists before breakfast Active hydroCHLOROthiazid e 12.5 mg tabletIndications: hypertension Take 1 tablet (12.5 mg total) by mouth teaching specialists before breakfast 09/14/20 24 Active losartan (COZAAR) 100 mg tabletIndications: hypertension Take 1 tablet (100 mg total) by mouth teaching specialists before breakfast 01/07/20 21 Active loratadine (CLARITIN) 10 mg tabletIndications: Allergic Rhinitis Take 1 tablet (10 mg total) by mouth teaching specialists before breakfast Active acetaminophen (TYLENOL) 500 mg tabletIndications: Back Pain,Pain Take 1 tablet (500 mg total) by mouth every 6 (six) hours as needed for pain or headaches Active ibuprofen 200 mg tab/capIndications :Pain Take 2 tablet/capsule (400 mg total) by mouth every 6 (six) hours as needed for pain or headaches Active cyclobenzaprine (FLEXERIL) 5 mg tabletIndications: Muscle Spasm Take 1 tablet (5 mg total) by mouth 3 (three) times a day as needed for muscle spasms 90 tablet 02/24/20 Active Additional Information Patient not taking.Reported on 03/01/2025 ondansetron ODT (ZOFRAN-ODT) 4 mg disintegrating tabletIndications: Prevention of Post-Operative Nausea and Vomiting Take 1 tablet (4 mg total) by mouth every 8 (eight) hours as needed for nausea or vomiting 20 tablet 02/24/20 Active Additional Information Patient not taking.Reported on 03/29/2025 meclizine (ANTIVERT) 25 mg tablet Take 1 tablet (25 mg total) by mouth 3 (three) times a day as needed for dizziness 15 tablet 02/26/20 Active Additional Information Patient not taking.Reported on 03/29/2025 Active Problems Problem Noted Date Diagnosed Date Lumbar radiculopathy 01/14/2025 Abnormal findings on diagnostic imaging of breas t 01/25/2015 Hyperlipemia Hypertension Osteoarthritis Surgical History Surgery Date Site/Laterality Comments CERVICAL FUSION 10/28/2010 - 10/27/[address] Fuentes C4-5 Medical History Medical History Date Comments Hypertension Hyperlipemia Osteoarthritis Family History Medical History Relation Name Comments Heart disease Father Hypertension Father Cancer Maternal Grandmother Diabetes Mother Hypertension Mother Heart disease Paternal Grandfather Diabetes type I Son Anesthesia problems Neg Hx Relation Name Status Comments Father Maternal Grandmother Mother Paternal Grandfather Son Other Social History Tobacco Use Types Packs/Day Years Used Date Smoking Tobacco: Never Smokeless Tobacco: Never Tobacco Cessation:Counseling Given: Not Answered AUDIT-C Answer Date Recorded Q1: How often do you have a drink containing alc ohol? Monthly or less 02/23/2025 Q2: How many drinks containi ng alcohol do you have on a typical day when you are drinking? 1 or 2 02/23/2025 Q3: How often do you have si x or more drinks on one occasion? Never 02/23/2025 Personal Safety Answer Date Recorded Have you ever been in or are you currently in a harmful physical or emotional relationship or is someone making you feel afraid or unsafe? 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 Not on file Not on file Not on file Obstetrics History Last Filed Vital Signs Vital Sign Reading Time Taken Comments Blood Pressure 142/74 03/29/2025 1:23 PM CDT Pulse 93 03/29/2025 1:23 PM CDT Temperature 36.6 C (97.8 F) 02/25/2025 3:40 PM CDT Respiratory Rate 15 02/25/2025 8:30 PM CDT Oxygen Saturation 100% 03/29/2025 1:23 PM CDT Inhaled Oxygen Concentration - - Weight 67.9 kg (149 lb 12.8 oz) 03/29/2025 1:23 PM CDT Height 154.9 cm (5' 1) 03/29/2025 1:23 PM CDT Body Mass Index 28.3 03/29/2025 1:23 PM CDT Plan of Treatment Health Maintenance Due Date Last Done Comments Breast Cancer Screening-Mammogram 1967 Cervical Cancer Screening 1967 Colon Cancer Screening-Colonoscopy 1967 Depression Screening 1967 Hepatitis C Screening 1967 DTaP/Tdap/Td Vaccine (1 - Tdap) 1978 Hepatitis B Screening 1985 Regular Well Visit/Exam 18-64 1985 Zoster Vaccine (1 of 2) 2017 Covid-19 Vaccine (3 - 2024-2 6 season) 2025 01/13/2021, 12/23/2020 Influenza Vaccine (#1) 2025 Pneumococcal vaccine <65 Aged Out No longer eligible based on patient's age to complete this topic Medical Devices Implanted Type Area Chartered Wealth Manager Device Identifier Shelf Expiration Date Model / Serial / Lot [employer] Insurance [facility] [id number] [place] [address] CMR Care Teams Assembling Fabricator Relationship Specialty Start Date End Date Piotr Ortiz DO PCP - General Internal Medicine 12/03/24
--- OUTSIDE RECORDS SUMMARY | 2025-07-21 09:48 | XMS_ITS | Clinical Summary ---
Author Organization [facility] Address [address] [place] [address] Care Team Providers Care Electronics Mechanic Apprentice Name Role Phone Piotr Ortiz DO Primary Care Provider Source Comments [facility],non-owned Affiliates and Associated Physician Practices is amultiple site organization consisting of ambulatory clinics and hospital sitesin [place], [place], [place] and [place]. This disclosure is being madepursuant to the Care Everywhere program and may not contain all information available regarding this patient. Last updated 18.[facility] [employer]IQ Allergies Active Allergy Reactions Criticality Noted Date Comments Codeine Rash Medium 06/19/2021 Penicillins Rash Medium 06/19/2021 Shellfish-Derived Products Angioedema High Sulfa Drugs GI Discomfort 06/19/2021 Medications * Be aware that medications may not be up to date on this document. Alwaysverify current medications with the patient. amLODIPine (NORVASC) 10 MG tablet Take 10 mg by mouth once daily 01/11/2021 Active atorvastatin (LIPITOR) 10 MG tablet Take 1 tablet by mouth once daily Active citalopram (CELEXA) 20 MG tablet Take 10 mg by mouth once daily 03/03/2021 Active ezetimibe (ZETIA) 10 MG tablet Take 10 mg by mouth once daily 04/27/2021 Active losartan (COZAAR) 100 MG tablet Take 100 mg by mouth once daily 01/06/2021 Active triamterene-hyd roCHLOROthiazid e (DYAZIDE) 37.5-25 MG capsule Take 1 capsule by mouth once daily 05/09/2021 Active Family History Medical History Relation Name Comments Arthritis - Rheumatoid Brother Cancer - Other Maternal Grandmother Diabetes - Type 2 Mother Glaucoma Mother Osteoporosis Mother Alcohol abuse Paternal Grandfather Relation Name Status Comments Brother Maternal Grandmother Mother Paternal Grandfather Social History Tobacco Use Types Packs/Day Years Used Date Smoking Tobacco: Never Smokeless Tobacco: Never Alcohol Use Standard Drinks/Week Comments Yes 0 (1 standard drink = 0.6 oz pur e alcohol) Comments No Sex and Gender Information Value Date Recorded Sex Assigned at Not on file Legal Sex Female 6:44 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 Gender Identity Not on file Sexual Orientation Not on file Last Filed Vital Signs Vital Sign Reading Time Taken Comments Blood Pressure 136/72 06/19/2021 10:22 AM CDT Pulse 77 06/19/2021 10:22 AM CDT Temperature 36.6 C (97.9 F) 06/19/2021 10:22 AM CDT Respiratory Rate 18 06/19/2021 10:22 AM CDT Oxygen Saturation 100% 06/19/2021 10:22 AM CDT Inhaled Oxygen Concentration - - Weight 65.8 kg (145 lb) 06/19/2021 10:22 AM CDT Height 154.9 cm (5' 1) 06/19/2021 10:22 AM CDT Body Mass Index 27.4 06/19/2021 10:22 AM CDT Plan of Treatment Health Maintenance Due Date Last Done Comments COLOGUARD (AGES 45-75) - COL ON CA SCREENING 1967 COLON MONITORING 1967 COLONOSCOPY - COLON CA SCREENING 1967 CT COLONOGRAPHY - COLON CA SCREENING 1967 Colorectal Cancer Screening 1967 FIT - COLON CA SCREENING 1967 FLEX SIG - COLON CA SCREENING 1967 MAMMOGRAM 1967 HIV SCREENING 1982 HEPATITIS C SCREENING 03/16/1985 DTAP/TDAP/TD VACCINES (1 - Tdap) 1986 HEPATITIS B VACCINE (1 of 3 - 19+ 3-dose series) 1986 PNEUMOCOCCAL VACCINE 50+ (1 of 1 - PCV) 2017 ZOSTER VACCINE (1 of 2) 2017 SCREENING FOR DIABETES 06/19/2021 DEPRESSION SCREENING 10/28/2024 COVID-19 VACCINE (2023-2 5 season) 2025 INFLUENZA VACCINE (#1) 2025 HIB VACCINE Aged Out No longer eligi ble based on patient's age to complete this topic HPV VACCINE Aged Out No longer eligi ble based on patient's age to complete this topic MENINGOCOCCAL (Group B) VACC INE SHARED DECISION-MAKING Aged Out No longer eligibl e based on patient's age to complete this topic MENINGOCOCCAL GROUPS A/C/Y/W VACCINE Aged Out No longer eligible b ased on patient's age to complete this topic Insurance Care Teams Electronics Mechanic Apprentice Relationship Specialty Start Date End Date Piotr Ortiz DO PCP - General 06/19/21
[2025-07-21 19:27] LABS: Alanine Aminotransferase 52 U/L (6-35); Albumin Level 4.8 g/dL (3.5-5.1); Alkaline Phosphatase 78 U/L (38-126); Anion Gap 10 mmol/L (4-12); Aspartate Amino Transferase 48 U/L (14-36); Bilirubin,Total 0.5 mg/dL (0.2-1.3); Blood Urea Nitrogen 12 mg/dL (7-17); Calcium 9.6 mg/dL (8.4-10.2); Carbon Dioxide 26 mmol/L (22-30); Chloride 102 mmol/L (98-107); Cholesterol 213 mg/dL (0-200); Estimated Glomerular Filt Rate > 60; Glucose 107 mg/dL (65-110); HDL Direct 54 mg/dL; Potassium 4.0 mmol/L (3.4-5.0); Sodium 138 mmol/L (137-145); Total Protein 8.0 g/dL (6.3-8.2); Triglycerides 159 mg/dL (<150)
[2025-07-21 19:31] LABS: Hematocrit 38.6 % (37.0-47.0); Hemoglobin 12.7 g/dL (12.0-15.0); Immature Granulocyte Percent A 0.5 % (0-0.5); Lymphocytes Absolute Auto 2.56 K/mm3 (0.9-3.2); Mean Corpuscular HGB Conc 32.9 g/dl (32-36); Mean Corpuscular Hemoglobin 32.1 pg (26-34); Mean Corpuscular Volume 97.5 fl (80-100); Nucleated Red Blood Cells Absolute Auto 0.000 K/mm3 (0.0-0.012); Nucleated Red Blood Cells Perc 0.0 % (0.0-0.2); Platelet Count Result 194 k/mm3 (150-375); Red Blood Count 3.96 M/mm3 (4.2-5.4); White Blood Count 6.6 K/mm3 (4.5-10.0)
[2025-07-21 20:04] LABS: Thyroid Stimulating Hormone 1.460 uIU/mL (0.465-4.680)
== END 2025-07-21 09:11 | disposition home or self-care (01) ==
LOC: ANHGOSHLAB 09:12
PROVIDERS: Visit Provider Nurse Practitioner
DX: E55.9 Vitamin D deficiency, unspecified (principal); I10 Essential (primary) hypertension; E78.00 Pure hypercholesterolemia, unspecified
CPT/HCPCS: 36415; 80053; 80061; 82306; 84443; 85025

== ENCOUNTER 2025-08-17 00:15 | Day surgery (SDC) | payer OTHER, SELFPAY ==
--- OUTSIDE RECORDS SUMMARY | 2025-04-27 04:31 | XMS_ITS | Continuity of Care Document ---
Author Organization [employer] [facility] Address [address] [place] [address] Phone Care Team Providers Care Snow Shoveler Name Role Phone Maykel Tang Unavailable Unavailable Procedures Procedure Date Therapeutic Activities Neuromuscular Re-Ed Therapeutic Exercise Manual Therapy Hot or Cold Pack Therapeutic Activities Neuromuscular Re-Ed Therapeutic Exercise Therapeutic Activities Neuromuscular Re-Ed Therapeutic Exercise Therapeutic Activities Neuromuscular Re-Ed Therapeutic Exercise Therapeutic Activities Neuromuscular Re-Ed Therapeutic Exercise Therapeutic Activities Neuromuscular Re-Ed Therapeutic Exercise Hot or Cold Pack PT Evaluation Moderate Complexity Neuromuscular Re-Ed Neuromuscular Re-Ed Therapeutic Exercise Manual Therapy Neuromuscular Re-Ed Therapeutic Exercise Manual Therapy Neuromuscular Re-Ed Therapeutic Exercise Manual Therapy Neuromuscular Re-Ed Therapeutic Exercise Manual Therapy Progress Note Neuromuscular Re-Ed Therapeutic Exercise Manual Therapy Therapeutic Activities Neuromuscular Re-Ed Therapeutic Exercise Manual Therapy Therapeutic Activities Neuromuscular Re-Ed Therapeutic Exercise Manual Therapy Therapeutic Activities Neuromuscular Re-Ed Therapeutic Exercise Manual Therapy Therapeutic Activities Neuromuscular Re-Ed Therapeutic Exercise Manual Therapy Hot or Cold Pack Therapeutic Activities Neuromuscular Re-Ed Therapeutic Exercise Manual Therapy PT Evaluation Moderate Complexity Therapeutic Activities Neuromuscular Re-Ed Therapeutic Exercise Advance Directives Directive Yes / No Effective Date File Name No Information Encounters Encounter Description Practice Location Reason(s) For Visit Diagnoses Date Provider Providers Copied on Encounter [facility] [place] [address], [id number], tel:[phone] [place] No Information Apr- [address] [facility] [address], [place], [facility], [place]. tel:[phone] [facility] [address] [facility] [address], [place], [id number], tel:[phone] [place] No Information [address] [facility] [address], [place], [facility], [place]. tel:[phone] Referring Provider: Trey Castro , [address] [place] [address], [place], [address]. tel:[phone] [place] [address], [place], [place], [id number], [place] tel:[phone] [place] No Information Mar-2 - 5 Gabe Carlos. . Referring Provider: Trey Castro , [address], [place], [address]. tel:[phone] [place] [address], [address], [place], [place], [id number], [place] tel:[phone] [place] No Information Mar-1 5 Gabe Carlos. . Referring Provider: Trey Castro , [address], [place], [address]. tel:[phone] [place] [address], [address], [place], [place], [id number], tel:[phone] [place] No Information Mar-1 5 Gabe Carlos. . Referring Provider: Annette [address], [place], [address]. tel:[phone] [place] [address], [address], [place], [place], [id number], [place] tel:[phone] [place] No Information Mar-0 5 Gabe Carlos. . Referring Provider: [address], [place], [address]. tel:[phone] [place] [address], [address], [place], [place], [id number], [place] tel:[phone] [place] No Information Mar-0 - 5 Gabe Carlos. . Referring Provider: Annette [address], [place], [address]. tel:[phone] [place] [address], [address], [place], [place], [id number], [place] tel:[phone] [place] No Information Feb-2 5 Gabe Carlos. . Referring Provider: [address], [place], [address]. tel:[phone] [facility], [place], [place], [id number], [place] tel:[phone] [place] No Information 4 Gabe Carlos. . Referring Provider: Jaelyn Tellez, [address] [place] [address] , [place], [address]. tel:[phone] [place] [id number] [facility], [place], [place], [id number], [place] tel:[phone] [place] No Information 4 Gabe Carlos. . Referring Provider: Jaelyn Tellez, [address] [place] [address] , [place], [address]. tel:[phone] [facility] [facility], [place], [id number], [place] tel:[phone] [place] No Information 4 Gabe Carlos. . Referring Provider: Jaelyn Tellez, [address] [place] [address] , [place], [address]. tel:[phone] [place] [address] [address] [facility], [place], [place], [id number], [place] tel:[phone] [place] No Information 4 Gabe Carlos. . Referring Provider: Jaelyn Tellez, [address] [place] [address] , [place], [address]. tel:[phone] [place] [id number] [address], [place], [place], [id number], [place] tel:[phone] [place] No Information 4 Gabe Carlos. . Referring Provider: Jaelyn Tellez, [address] [place] [address] , [place], [address]. tel:[phone] [facility], [place], [place], [id number], [place] tel:[phone] [place] No Information 4 Gabe Carlos. . Referring Provider: Jaelyn Tellez, [address] [place] [address] , [place], [address]. tel:[phone] [place] [address], [place], [place], [id number], tel:[phone] [place] No Information 4 Gabe Carlos. . Referring Provider: Jaelyn Tellez, [address] [place] [address] , [place], [address]. tel:[phone] [place] [address], [place], [place], [id number], [place] tel:[phone] [place] No Information 4 Gabe Carlos. . Referring Provider: Jaelyn Tellez, [address] [place] [address] , [place], [address]. tel:[phone] [place] [address], [id number], tel:[phone] [place] No Information 4 Gabe Valenzuelaon. . Referring Provider: Jaelyn Tellez, [address] [place] [address] , [place], [address]. tel:[phone] [place] [address], [place], [place], [id number], tel:[phone] [place] No Information 4 Gabe Valenzuelaon. . Referring Provider: Jaelyn Tellez, [address] [place] [address] , [place], [address]. tel:[phone], [id number], tel:[phone] [place] No Information 4 Gabe Carlos. . Referring Provider: Jaelyn Tellez, [address] [place] [address] , [place], [address]. tel:[phone] Family History Family Member Type Diagnosis Age At Onset No Information Payers Payer name Insurance type Covered alliance party ID Cehrelle zamudio(s) [facility] [id number] Social History Type Description Quantity Date Captured Comments Sex Female Smoking Status No Information Chief Complaint And Reason For Visit No Information Reason For Referral Reason For Referral No Information History Of Present Illness Encounter Date Complaint History Of Prese nt Illness No Information Functional Status Date Functional Assessmen t No Information Instructions Date Instruction Additional Infor mation No Information Assessments Type Assessment Date No Information Patient Care Teams Name Effective Dates (start - stop) Status Members No Information
--- OUTSIDE RECORDS SUMMARY | 2025-08-16 12:34 | XMS_ITS | Encounter Summary ---
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 Gender Identity Not on file Sexual Orientation Not on file 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 Not on file Not on file documented as of this encounter Plan of Treatment Not on file documented as of this encounter Procedures Procedure Name Priority Date/Time Associated Diagnosis Comments XR SCOLIOSIS AP LAT Schedule Routine, Read Routine (OP Routine) 08/16/2025 12:50 PM CDT Low back pain, non-specific Lumbar radiculopathy documented in this encounter Results * XR Scoliosis Ap and Lateral (08/16/2025 12:50 PM CDT) Anatomical Region Laterality Modality Spine N/A Computed Radiogr aphy 08/16/2025 2:13 PM CDT Impressions 08/16/2025 2:13 PM CDT FINDINGS/IMPRESSION: There is moderate to severe, S-shaped scoliosis of the thoracic and lumbar spine. There is 30 degrees dextroscoliosis centered at T10 and there is 35 degrees levoscoliosis centered at L2-L3. There is a rotatory component of the lumbar scoliosis. The findings are similar to the prior study. The right hip is slightly elevated compared with the left and the right shoulder is markedly elevated compared with the left. There is mild leftward coronal imbalance and mild forward sagittal imbalance. There are postsurgical changes of anterior cervical discectomy and fusion at C5-C7. There is severe degenerative disc disease at C4-C5. There is moderate degenerative disc disease at L2-L3. There is no abnormal motion of the lumbar spine on flexion or extension. There is severe right facet arthritis at L3-L4 and moderate right facet arthritis at L4-L5 and L5-S1. Electronically signed by: Frederic Kay M.D. Narrative 08/16/2025 2:13 PM CDT EXAMINATION: XR SPINE LUMBAR AP LAT FLEX EXT MIN 4 VIEWS, XR SCOLIOSIS AP AND LATERAL DATE: 08/16/2025 1:45 PM HISTORY: back pain. COMPARISON: Scoliosis and lumbar spine radiographs dated 12/11/2024.. Procedure Note Frederic Kay MD - 08/16/2025 EXAMINATION: XR SPINE LUMBAR AP LAT FLEX EXT MIN 4 VIEWS, XR SCOLIOSIS AP AND LATERAL DATE: 08/16/2025 1:45 PM HISTORY: back pain. COMPARISON: Scoliosis and lumbar spine radiographs dated 12/11/2024.. IMPRESSION: FINDINGS/IMPRESSION: There is moderate to severe, S-shaped scoliosis of the thoracic and lumbar spine. There is 30 degrees dextroscoliosis centered at T10 and there is 35 degrees levoscoliosis centered at L2-L3. There is a rotatory component of the lumbar scoliosis. The findings are similar to the prior study. The right hip is slightly elevated compared with the left and the right shoulder is markedly elevated compared with the left. There is mild leftward coronal imbalance and mild forward sagittal imbalance. There are postsurgical changes of anterior cervical discectomy and fusion at C5-C7. There is severe degenerative disc disease at C4-C5. There is moderate degenerative disc disease at L2-L3. There is no abnormal motion of the lumbar spine on flexion or extension. There is severe right facet arthritis at L3-L4 and moderate right facet arthritis at L4-L5 and L5-S1. Electronically signed by: Frederic Kay M.D. Trey Castro MD IMG XR PROCEDURES Final Re sult documented in this encounter Visit Diagnoses Diagnosis Low back pain, non-specific Lumbar radiculopathy Thoracic or lumbosacral neuritis or radiculitis, unspecified documented in this encounter Care Teams Fruit I Farmworker Relationship Specialty Start Date End Date Piotr Ortiz DO PCP - General Internal Medicine 12/03/24 documented as of this encounter
--- OUTSIDE RECORDS SUMMARY | 2025-08-16 12:34 | XMS_ITS | Encounter Summary ---
Author Organization [facility] Healthcare Address [address] [place] [address] Care Team Providers Care Card Cleaner Name Role Phone Piotr Ortiz DO Primary Care Provider Reason for Referral * Diagnostic Imaging (Routine) - Pending Review Specialty Diagnoses / Procedures Referred By Contac t Referred To Contact Diagnoses Low back pain, non-specific Lumbar radiculopathy Procedures XR Spine Lumbar Ap Lat Flex Ext min 4 Views Trey Castro MD [address] [place] [address] Phone: tel: fax: [address] [phone] Referral ID Status Reason Start Date Expiration Date V isits Requested Visits Authorized [id number] Pending Review 03/29/2025 04/28/2026 1 1 Reason for Visit * Diagnostic Imaging (Routine) - Pending Review Specialty Diagnoses / Procedures Referred By Contac t Referred To Contact Diagnoses Low back pain, non-specific Lumbar radiculopathy Procedures XR Spine Lumbar Ap Lat Flex Ext min 4 Views Trey Castro MD [address] [place] [address] Phone: tel: fax: [address] [phone] Referral ID Status Reason Start Date Expiration Date V isits Requested Visits Authorized [id number] Pending Review 03/29/2025 04/28/2026 1 1 Encounter Details Date Type Department Care Team (Latest Contact Info) Description 08/16/2025 12:34 PM CDT Hospital Encounter [facility] [address] [place] [address] Low back pain, non-specific; Lumbar radiculopathy Social [...] on file 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 Gender Identity Not on file Sexual Orientation Not on file 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 Electronically signed by: Frederic Kay M.D. us Trey Castro MD IMG XR PROCEDURES Final Re sult documented in this encounter Visit Diagnoses Diagnosis Low back pain, non-specific Lumbar radiculopathy Thoracic or lumbosacral neuritis or radiculitis, unspecified documented in this encounter Care Teams Card Cleaner Relationship Specialty Start Date End Date Piotr Ortiz DO PCP - General Internal Medicine 12/03/24 documented as of this encounter
--- OUTSIDE RECORDS SUMMARY | 2025-08-16 13:00 | XMS_ITS | Encounter Summary ---
Author Organization [facility] Healthcare Address [address] [place] [address] Care Team Providers Care Camper Assembler Name Role Phone Piotr Ortiz DO Primary Care Provider Reason for Visit * Reason Comments Return Patient Encounter Details Date Type Department Care Team (Latest Contact Info) Description 08/16/2025 1:00 PM CDT Office Visit [facility] [place] with [facility] [address] Office [address] [place] [address] Nancy Mcdonnell, ELIF [address] [place] [address] Cervical stenosis of spinal canal (Primary Dx); Neck pain Social History Tobacco Use Types Packs/Day Years [...] on file 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 Gender Identity Not on file Sexual Orientation Not on file 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 Not on file documented as of this encounter Last Filed Vital Signs Vital Sign Reading Time Taken Comments Blood Pressure 148/77 08/16/2025 1:09 PM CDT Pulse 89 08/16/2025 1:09 PM CDT Temperature - - Respiratory Rate - - Oxygen Saturation 100% 08/16/2025 1:09 PM CDT Inhaled Oxygen Concentration - - Weight 70.1 kg (154 lb 9.6 oz) 08/16/2025 1:09 P M CDT Height 154.9 cm (5' 1) 08/16/2025 1:09 PM CDT Body Mass Index 29.21 08/16/2025 1:09 PM CDT documented in this encounter Plan of Treatment Scheduled Orders Name Type Priority Associated Diagnoses Orde r Schedule XR Spine Cervical 6 or More Views Imaging Schedule Routine, Read Routine (OP Routine) Neck pain Expected: 08/17/2025, Expires: 08/16/2026 documented as of this encounter Visit Diagnoses Diagnosis Cervical stenosis of spinal canal- Primary Spinal stenosis in cervical region Neck pain Cervicalgia documented in this encounter Care Teams Camper Assembler Relationship Specialty Start Date End Date Piotr Ortiz DO PCP - General Internal Medicine 12/03/24 documented as of this encounter
--- OUTSIDE RECORDS SUMMARY | 2025-08-17 00:18 | XMS_ITS | Clinical Summary ---
Author Organization [facility] Address [address] [place] [address] Care Team Providers Care Financial Aids Officer Name Role Phone Piotr Ortiz DO Primary Care Provider Source Comments [facility],non-owned Affiliates and Associated Physician Practices is amultiple site organization consisting of ambulatory clinics and hospital sitesin [place] and [place]. This disclosure is being madepursuant to the Care Everywhere program and may not contain all information available regarding this patient. Last updated 18.[facility] [employer] Allergies Active Allergy Reactions Criticality Noted Date [...] on file Legal Sex Female 6:44 AM MOUNTER FLUTES AND PICCOLOS Gender Identity Not on file Sexual Orientation [...] patient's age to complete this topic Insurance [facility] Address: [facility] [id number] [place] [address] Care Teams Financial Aids Officer Relationship Specialty Start Date End Date Piotr Ortiz DO PCP - General 06/19/21
--- OUTSIDE RECORDS SUMMARY | 2025-08-17 00:18 | XMS_ITS | Clinical Summary ---
Author Organization [facility] Medical Office Building [address] [place] [address] Care Team Providers Care Rotary Filter Operator Name Role Phone Piotr Ortiz DO Primary Care Provider Allergies Active Allergy Reactions Criticality Noted Date Comments Codeine Rash Medium 12/11/2024 Diphenhydramine Other (See comments) 08/16/2025 Naproxen Rash Medium 03/20/2024 Penicillins Rash,Urticaria Medium Povidone-Iodine Hives,Shortness of breath,Swelling High 02/10/2025 Shellfish Containing Products Anaphylaxis High Sulfa Rash Medium 03/20/2024 Sumatriptan Unknown Low 03/20/2024 Medications atorvastatin (LIPITOR) 10 mg tabletIndications: hyperlipidemia Take 1 tablet (10 mg total) by mouth teacher early childhood development before breakfast Active hydroCHLOROthiazid e 12.5 mg tabletIndications: hypertension Take 1 tablet (12.5 mg total) by mouth teacher early childhood development before breakfast 09/14/20 24 Active losartan (COZAAR) 100 mg tabletIndications: hypertension Take 1 tablet (100 mg total) by mouth teacher early childhood development before breakfast 01/07/20 21 Active loratadine (CLARITIN) 10 mg tabletIndications: Allergic Rhinitis Take 1 tablet (10 mg total) by mouth teacher early childhood development before breakfast Active acetaminophen (TYLENOL) 500 mg [...] needed for muscle spasms 90 tablet 02/24/20 25 Active Additional Information Patient not taking.Reported on 03/01/2025 ondansetron ODT (ZOFRAN-ODT) 4 mg disintegrating tabletIndications: Prevention of Post-Operative Nausea and Vomiting Take 1 tablet (4 mg total) by mouth every 8 (eight) hours as needed for nausea or vomiting 20 tablet 02/24/20 25 Active Additional Information Patient not taking.Reported on 03/29/2025 meclizine (ANTIVERT) 25 mg tablet Take 1 tablet (25 mg total) by mouth 3 (three) times a day as needed for dizziness 15 tablet 02/26/20 25 Active Additional Information Patient not taking.Reported on 03/29/2025 Active Problems Problem Noted Date Diagnosed Date Depression 08/16/2025 Dizziness 08/16/2025 Lumbar back pain 08/16/2025 Right hip pain 08/16/2025 Right shoulder pain 08/16/2025 Vitamin D deficiency 08/16/2025 Lumbar radiculopathy 01/14/2025 Abnormal findings on diagnostic imaging of breas t 01/25/2015 Cervical intraepithelial neoplasia grade 2 08/27 Overview (08/16/2025): MARY 11 Moderate Dysplasia Of Cervix;Practice ID: [id number] Hyperlipemia Hypertension Osteoarthritis Encounters Date Type Department Care Team Description 08/16/2025 1:00 PM CDT Office Visit [facility] with [facility] Physicians [address] [place] [address] Nancy Mcdonnell NP Cervical stenosis of spinal canal (Primary Dx); Neck pain 08/16/2025 12:34 PM CDT Hospital Encounter [facility] [address] [place] [address] Low back pain, non-specific; Lumbar radiculopathy 08/16/2025 12:34 PM CDT Hospital Encounter [facility] [address] [place] [address] Low back pain, non-specific; Lumbar radiculopathy from Last 3 Months Surgical History Surgery Date Site/Laterality Comments CERVICAL [...] on file 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 Gender Identity Not on file Sexual Orientation Not on file 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 file Not on file Obstetrics History Last Filed Vital Signs Vital Sign Reading Time Taken Comments Blood Pressure 148/77 08/16/2025 1:09 PM CDT Pulse 89 08/16/2025 1:09 PM CDT Temperature 36.6 C (97.8 F) 02/25/2025 3:40 PM CDT Respiratory Rate 15 02/25/2025 8:30 PM CDT Oxygen Saturation 100% 08/16/2025 1:09 PM CDT Inhaled Oxygen Concentration - - Weight 70.1 kg (154 lb 9.6 oz) 08/16/2025 1:09 P M CDT Height 154.9 cm (5' 1) 08/16/2025 1:09 PM CDT Body Mass Index 29.21 08/16/2025 1:09 PM CDT Plan of Treatment Health Maintenance Due Date Last Done Comments Breast Cancer Screening-Mammogram 1967 Cervical Cancer Screening 1967 Colon Cancer Screening-Colonoscopy 1967 Depression Screening 1967 Hepatitis C Screening 1967 Hepatitis B Screening 1985 Regular Well Visit/Exam 18-64 1985 Zoster Vaccine (1 of 2) 2017 Covid-19 Vaccine (3 - season) 2025 01/13/2021, 12/23/2020 Influenza Vaccine (#1) 2025 DTaP/Tdap/Td Vaccine (8 - Td or Tdap) 05/06/2031 05/06/2021, 12/14/2015, 08/27/1978, Additional history exists Pneumococcal vaccine <65 Aged Out No longer eligible based on patient's age to complete this topic Medical Devices Implanted Type Area Railroad Yard Worker Device Identifier Shelf Expiration Date Model / Serial / Lot Titanium Neck Procedures Procedure Name Priority Date/Time Associated Diagnosis Comments XR SCOLIOSIS AP LAT Schedule Routine, Read Routine (OP Routine) 08/16/2025 12:50 PM CDT Low back pain, non-specific Lumbar radiculopathy XR LUMBAR SPINE AP LAT FLEX EX Schedule Routine, Read Routine (OP Routine) 08/16/2025 12:50 PM CDT Low back pain, non-specific Lumbar radiculopathy from Last 3 Months Results * XR Scoliosis Ap and Lateral [...] Frederic Kay M.D. us Trey Castro MD IM XR PROCEDURES Final Re sult * XR Spine Lumbar Ap Lat Flex [...] MD IMG XR PROCEDURES Final Re sult from Last 3 Months Insurance [facility] Care Teams Rotary Filter Operator Relationship Specialty Start Date End Date Piotr Ortiz DO PCP - General Internal Medicine 12/03/24
--- OUTSIDE RECORDS SUMMARY | 2025-08-17 00:19 | XMS_ITS | Data Portability ---
Author Organization [facility] Address [address] [place] [address] Care Team Providers Care Leadlighter Name Role Phone HEMANT LEWIS Primary Care Provider [phone] Assessment Encounter Date Assessment Date Assessment LastModified by Organization Details LastModified Time 09/11/2021 09/11/2021 Annual gynecological exam performed. Patient will come back in a year unless there are new symptoms. Not available 09/11/2021 11:37:10 03/15/2023 03/15/2023 Annual gynecological exam performed. Patient will come back in a year unless there are new symptoms. Not available 03/15/2023 15:15:52 03/30/2025 03/30/2025 Annual gynecological exam performed. Patient will come back in a year unless there are new symptoms. [email or web address] Not available 03/30/2025 10:23:19 Plan of Treatment Reminders Order Date Submit Date Provider Last Modified By Organization Details Last Modified Time Details Appointments None recorded. Lab lh + FSH, serum 2020 021 [facility], [address] , [place], [address], 12:53:35 estradiol, serum 2020 021 RONALD [facility], [address] , [place], [address], 12:53:35 Referral gastroenter ologist referral - Screening Colonoscopy Please contact this patient to schedule an appointment . If you have any questions, please call [phone]. Thank you, Sondra, Referral's [address] [facility], [address], [place], [address], 3 15:54:42 Procedures None recorded. Surgeries None recorded. Imaging MAMMO, screening, digital, bilateral [address], [address], [place], [address], 5 11:10:35 MAMMO, screening, bilateral [address], [address], [address], [place], [address], 3 11:27:07 US, pelvis [email or web address], [address], [address], [place], [address], 1 12:00:16 US, transvagina l 2020 [address], [address], [place], [address], 1 12:00:16 Medication Orders estradiol 0.01% (0.1 mg/gram) vaginal cream 2024 025 RONALD [facility], [address] , [place], [address], 5 10:58:42 Premarin 0.625 mg/gram vaginal cream 2022 023 [email or web address] [facility], [address] , [place], [address], 5 10:37:32 Patient TargetsNo targets recorded. Patient InstructionsNo instructions recorded. Reason for Referral Community Health Representative Referral for Screening for malignant neoplasm of colon Screening Colonoscopy Screening ColonoscopyPlease contact this patient to schedule an appointment.If you have any questions, please call [phone].Thank you,Sondra, Referral's Referring Physician: Bella Rowley, NEURODIAGNOSTIC TECHNOLOGIST, Encounter Date: 03/15/2023 Results Created Date Observation Date Name Description Value Unit Range Abnormal Flag Note LastModifiedBy Organization Detail LastModifiedTime 09/11/20 21 09/11/2021 IMAGE GUIDE D PAP AND HPV REGAR DLESS image guided Pap, HPV regardless of Pap result SEE RESULT S BELOW CASE REPOR T: Cytol ogy Gynec ologi chato Repor t Case: [id number] Autho catherine reza Provi reji: Nikita Eaton Colle cted: 09/11 1336 TRACK HELPER Order ing Locat ion: [place] [facility] Recei beth: 09/12 0125 First Scree n: Ava Saenz ret, CT Speci men: Scree polo Pap - Image d, Cervi x STATE MENT OF ADEQU ACY: Satis facto ry for evalu ation Trans forma tion zone compo nent prese nt FINAL DIAGN OSIS: Negat montse for Intra epith elial Lesio n or Chino lopez (NIL) . Shift in [place] sugge stive of bacte rial vagin osis. Elect willam san candido d by Ava Saenz ret, CT on 09/17 at 11:58 AM ----- ----- ----- ----- ----- ----- ----- ----- ----- ----- ----- ----- ----- ----- ----- ----- ----- ---- HPV RESUL TS: HPV mRNA E6/E7 : No HPV mRNA Detec bismark NOTE: This high risk HPV mRNA assay detec ts fourt een high- risk HPV types (16, 18, 31, 33, 35, 39, 45, 51, 52, 56, 58, 59, 66, 68) witho ut diffe renti ation . COMME NT: Note: This speci men was revie wed by a Cytot echno logis t and/o r Patho logis t (as indic ated in this repor t) after evalu ation using the Thinp rep Imagi ng Syste m. CLINI CHATO INFOR MATIO N: Menst rual Statu s: LMP (if appli cable ): Clini chato Histo ry/Pr eviou s Pap: Type of Neopl trent (if appli cable ): Signi fican t Clini chato Findi ngs: Other Histo ry: Hormo nehal (if appli cable ): PAP EDUCA GENESIS L NOTE: The Pap Test is a scree polo test with an inher ent false negat montse rate. Liqui d-bas e sampl ing may decre ase, but will not elimi kaushal, false negat montse resul ts. A negat montse resul t does not precl ude the prese nce and/o r devel opmen t of disea se, since the prese nce of abnor mal cells in the sampl e depen ds on the locat ion of the lesio n and sampl ing techn ique. Cathy nued regul ar scree polo is the best metho d of cance r preve ntion . If repor bismark cytol ogic findi ng do not corre late with physi chato and/o r histo rical findi ngs, furth er inves tigat ion is recom oscar d, as clini cee whitley nted. Not Available [facility] (Lab) [address] [facility], [place], [address], 09/17/2021 13:00:22 03/15/20 23 03/15/2023 IMAGE GUIDE D PAP AND HPV REGAR DLESS image guided Pap, HPV regardless of Pap result SEE RESULT S BELOW CASE REPOR T: Cytol ogy Gynec ologi chato Repor t Case: [id number] Autho catherine g Provi reji: Nikita Eaton Colle cted: 03/15 1548 TRACK HELPER Order ing Locat ion: [place] Patho logy Recei beth: 03/16 0111 First Scree n: Haley Novoa ica Speci men: Scree polo Pap - Image d, Cervi x STATE MENT OF ADEQU ACY: Satis facto ry for evalu ation Trans forma tion zone compo nent prese nt FINAL DIAGN OSIS: Negat montse for Intra epith elial Lesio n or Chino leecy (NIL) . Shift in [place] sugge stive of bacte rial vagin osis. Elect willam mena candido d by Haley Novoa ica on 2022 at 1:16 PM ----- ----- ----- ----- ----- ----- ----- ----- ----- ----- ----- ----- ----- ----- ----- ----- ----- ---- HPV RESUL TS: HPV mRNA E6/E7 : No HPV mRNA Detec bismark NOTE: This high risk HPV mRNA assay detec ts fourt een high- risk HPV types (16, 18, 31, 33, 35, 39, 45, 51, 52, 56, 58, 59, 66, 68) witho ut diffe renti ation . COMME NT: This speci men was revie wed by a Cytot echno logis t and/o r Patho logis t (as indic ated in this repor t) after evalu ation using the Thinp rep Imagi ng Syste m. CLINI CHATO INFOR MATIO N: Menst rual Statu s: LMP (if appli cable ): Clini chato Histo ry/Pr eviou s Pap: Type of Neopl trent (if appli cable ): Signi fican t Clini chato Findi ngs: Other Histo ry: Hormo nehal (if appli cable ): PAP EDUCA GENESIS L NOTE: The Pap Test is a scree polo test with an inher ent false negat montse rate. Liqui d-bas ed sampl ing may decre ase, but will not elimi kaushal, false negat montse resul ts. A negat montse resul t does not precl ude the prese nce and/o r devel opmen t of disea se, since the prese nce of abnor mal cells in the sampl e depen ds on the locat ion of the lesio n and sampl ing techn ique. Cathy nued regul ar scree polo is the best metho d of cance r preve ntion . If repor bismark cytol ogic findi ng do not corre late with physi chato and/o r histo rical findi ngs, furth er inves tigat ion is recom oscar d, as clini cee warrraquel nted. Not Available [facility] (Lab) [address], [place], [address], 03/18/2023 14:31:44 10/17/20 21 10/17/2021 US, pelvi s No observ ation record ed. [address], [place], [address], 10/17/2021 11:55:48 10/17/20 21 10/17/2021 US, trans vagin al No observ ation record ed. [place] [address], [place], [address], 10/17/2021 11:55:58 10/17/20 21 10/17/2021 US, pelvi s No observ ation record ed. [facility] [address] [facility], [place], [address], 10/25/2021 18:15:08 11/16/19 22 MAMMO , scree polo, bilat eral No observ ation record ed. [facility] [address], [place], [address], 11/17/2021 12:24:18 Result Notes Documentation Provider Name and Address Organization Details Recorded Time Mammo, Screening, Bilateral : ok to file neg no pp la,rma L Stevan raya [facility] 11/17/2021 12:24:18 Estradiol, Serum : estradiol slightly elevated? Rpt in 6 months keep diary? complained of PMB L Stevan raya, [facility] 10/09/2021 14:25:30 Problems Name Problem SNOMED Code Status Onset Date Resolution Date Notes Provider Name and Address Organization Details Recorded Time Screenin g for malignan t neoplasm of cervix Completed 201107/24/2012 Screenin g for malignan t neoplasm s of the cervix;R ecorded Elsewher e: No Locat ion: [facility] S ource: EHR Field Representative ivett: N Practi ce ID: 0001 Yunier lable Time: 11:30:00 AM Sapna Campbell [facility] 14:48:44 Screenin g for malignan t neoplasm of rectum Completed 201107/08/2012 Screenin g for malignan t neoplasm s of the rectum;R ecorded Elsewher e: No Locat ion: [facility] S ource: EHR Field Representative ivett: N Practi ce ID: 0001 Yunier lable Time: 11:30:00 AM Sapna raya [facility] 14:48:45 Family planning surveill ance Completed 201106/28/2021 Contrace ptive surveill ance, unspecif ied;Prac zuleyma ID: 0001 Sapna raya [facility] 14:48:24 Speciali zed medical examinat ion Completed 201106/28/2021 Routine gynecolo gical examinat ion;Prac zuleyma ID: [address] [facility] 14:48:50 Insertio n of intraute rine contrace ptive device Completed 201107/08/2012 INSERTIO N OF IUD;Iván rded Elsewher e: No Locat ion: [facility] S ource: EHR Field Representative ivett: N Practi ce ID: 0001 Yunier lable Time: 01:45:[address] [facility] 14:48:28 Pregnanc y test negative [id number] Completed 201107/24/2012 Pregnanc y examinat ion or test, negative result;R ecorded Elsewher e: No Locat ion: [facility] S ource: EHR Field Representative ivett: N Practi ce ID: 0001 Yunier lable Time: 01:45:[address] [facility] 14:48:39 Urinary tract infectio us disease [id number] Completed 201106/28/2021 Urinary tract infectio n, site not specifie d;Practi ce ID: [address] [facility] 14:48:52 Dysfunct ional uterine bleeding Completed 201106/28/2021 DUB;Prac zuleyma ID: [address] [facility] 14:48:20 Gastroin testinal hemorrha ge [id number] Completed 201106/28/2021 Hemorrha ge of gastroin testinal tract, unspecif ied;Prac zuleyma ID: [address] [facility] 14:48:26 Cyst of ovary [id number] Completed 201106/28/2021 Other and unspecif ied ovarian cyst;Rec orded Elsewher e: No [facility]: EHR Field Representative ivett: N Practi ce ID: 0001 Yunier lable Time: 09:45:00 AM [address]apna Campbell [facility] 14:48:15 Procedur e on genitour inary system Completed 201206/28/2021 Steriliz ation;Re corded Elsewher e: No Locat ion: [facility] N Zoieti ce ID: 0001 Yunier lable Time: 02:30:00 [facility] 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 N Practi ce ID: 0001 Yunier lable Time: 02:30:[address] [facility] 14:48:36 Screenin g for malignan t neoplasm of cervix Completed 201206/28/2021 Pap Smear;Pr actice ID: [address] [facility] 14:48:44 Cytologi c finding Completed 201206/28/2021 Papanico laou smear of cervix with low grade squamous intraepi thelial lesion (LGSIL); Recorded Elsewher e: No Locat ion: [facility] ource[facility]: N Zoieti ce ID: 0001 Yunier lable Time: 04:00:00 PM [facility] 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 14:48:10 Cytologi c finding Completed 201206/28/2021 Pap Abnormal HGSIL;Pr actice ID: 0001 Sapna raya, [facility] 14:48:18 Insertio n of intraute rine contrace ptive device Completed 201206/28/2021 INSERTIO N OF IUD;Prac zuleyma ID: 0001 Sapna raya, [facility] 14:48:28 Conducti on disorder of the heart [id number] Completed 201306/28/2021 Bradycar sachin;Iván rded Elsewher e: No Locat ion: [facility] S ource: EHR Field Representative ivett: N Practi ce ID: 0001 Yunier lable Time: 03:05:[address] [facility] 14:48:13 Adult health examinat ion Completed 201406/28/2021 Routine general medical examinat ion at a health care facility ;Practic e ID: 0001 Sapna Campbell [facility], [facility] 14:48:06 Mammogra phy abnormal [id number] Completed 201406/28/2021 Unspecif ied abnormal mammogra m;Record ed Elsewher e: No Locat ion: [facility] S ource: EHR Field Representative ivett: N Practi ce ID: 0001 Yunier lable Time: 02:22:[address] [facility] 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 14:48:[address] Concept Completed 201706/28/2021 Encntr for general adult medical exam w/o abnormal findings ;Recorde d Elsewher e: No Locat ion: [facility] S ource: EHR Field Representative ivett: N Practi ce ID: 0001 Yunier lable Time: 02:30:00 PM Sapna Campbell [facility] 14:48:47 Pelvic and perineal pain [id number] Completed 201706/28/2021 Pelvic pain;Rec orded Elsewher e: No Locat ion: [facility]: N Zoieti ce ID: 0001 Yunier lable Time: 02:30:00 PM Sapna Campbell [facility], [facility] 14:48:37 Atypical squamous cells of undeterm ined signific ance on cervical Papanico laou smear [id number] Completed 201706/28/2021 Atyp squam cell of undet signfc cyto smr crvx (ASC-US) ;Recorde d Elsewher e: No Locat ion: [facility] S ource[facility] N Practi ce ID: 0001 Yunier lable Time: 10:30:00 AM Sapna Campbell [facility] 14:48:08 Evaluati on finding Completed 201706/28/2021 Unsp abnormal cytolog findings in specmn from cervix uteri;Re corded Elsewher e: No Locat ion: [facility] S ource[facility]: N Zoieti ce ID: 0001 Yunier lable Time: 10:30:00 AM Sapna Campbell [facility] 14:48:23 Low grade squamous intraepi thelial lesion on cervical Papanico laou smear [id number] Completed 201706/28/2021 Low grade squamous intraepi thelial lesion on cytologi c smear of cervix (LGSIL); Recorded Elsewher e: No Locat ion: [facility] N Practi ce ID: 0001 Yunier lable Time: 11:15:00 AM Sapna Campbell [facility] 14:48:30 Evaluati on finding Completed 201706/28/2021 Hematuri a, unspecif ied;Iván rded Elsewher e: No Locat ion: [facility] S ource: EHR Field Representative ivett: N Practi ce ID: 0001 Yunier lable Time: 11:30:[address] AM [address]apna Campbell [facility] 14:48:21 Screenin g for malignan t neoplasm of rectum Completed 201806/28/2021 Encounte r for screenin g for malignan t neoplasm of rectum;R ecorded Elsewher e: No Locat ion: [facility] S ource: EHR Field Representative ivett: N Practi ce ID: 0001 Yunier lable Time: 03:00:[address] [facility] 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 14:48:34 Removal of intraute rine device Completed 201806/28/2021 Encounte r for removal of intraute rine contrace ptive device;R ecorded Elsewher e: No Locat ion: [facility] S ource: EHR Field Representative ivett: N Practi ce ID: 0001 Yunier lable Time: 03:00:[address] [facility] 14:48:42 Menopaus e present [id number] Completed 201906/28/2021 Menopaus al and female climacte bhavya states;R ecorded Elsewher e: No Locat ion: [facility] S ource: EHR Field Representative ivett: N Practi ce ID: 0001 Yunier lable Time: 02:00:00 PM [facility] 14:48:33 Pregnanc y test negative [id number] Completed 201906/28/2021 Encounte r for pregnanc y test, result negative ;Recorde d Elsewher e: No Locat ion: [facility] S ource: EHR Field Representative ivett: N Practi ce ID: 0001 Yunier lable Time: 04:00:00 PM Sapna raya [facility] 14:48:39 Clinical finding Completed 201906/28/2021 Presence of (intraut erine) contrace ptive device;R ecorded Elsewher e: No Locat ion: [facility] S ource: EHR Field Representative ivett: N Practi ce ID: 0001 Yunier lable Time: 04:00:[address] [facility] 14:48:12 Problem Notes None recorded. Procedures Surgical History Date Name Laterality Status Provider Name and Address Organization Details Recorded Time 03/15/20 23 Date of Last Pap Smear completed Rizwana Martines [facility] 03/30/2025 10:26:26 06/28/20 21 IUD Removal completed Bella Rowley ELIF- [address], [place], [address], [facility] 06/28/2021 15:57:57 01/21/20 18 Colposcopy completed Sapna [facility] 06/28/2021 14:51:39 primary fusion of cervical spine completed Sapna [facility] 06/28/2021 14:55:35 LEEP completed Carli Frances [facility] 08/08/2020 14:13:12 Imaging Results None recorded. Procedure Notes None recorded. Medical Equipment None Reported. Allergies Allergen ID Allergen Name Allergen Category Reaction Reaction Severity Criticality Documentation Date Start Date Code Code System Note Provider Name and Address Organization Details Recorded Time 61347 sulfameth oxazole medicatio n Not available Not available Not available 10/14/2020 81544 RxNorm Comme nt: Locat [facility]: [facility]; Sapna Campbell [facility] 1 20:25:31 2364 codeine medicatio n Not available Not available Not available 08/08/2020 2670 RxNorm Carli Frances [facility] 0 14:10:41 2365 Benadryl medicatio n Not available Not available Not available 08/08/2020 64699 7 RxNorm Carli Frances [facility] 0 14:10:46 2366 Product containin g penicilli n (product) medicatio n Not available Not available Not available 08/08/2020 94923 8001 SNOM[address] [facility] 0 14:10:52 2367 Substance with sulfonami de structure and antibacte rial mechanism of action (substanc e) medicatio n Not available Not available Not available 08/08/2020 44746 8003 SNOMED [address] [facility] 0 14:10:57 2368 trimethop rim medicatio n Not available Not available Not available 08/08/2020 60717 RxNorm Sapna Campbell [facility] 1 20:25:35 Medications Name Sig Start Date Stop Date Status Note LastModified by Organization Details LastModified Time cyclobenz aprine 10 mg tablet TAKE 1 TABLET BY MOUTH TWICE DAILY NEEDED FOR MUSCLE SPASM 03/30 completed Not Available Not Available Not Available Mirena 21 mcg/24 hr (up to 8 years) 52 mg intrauter ine device 11/25 completed Prescrib ed Elsewher e: Yes Loca tion: [facility] M odify By: shola ich Enco unter DateTime : 03/09/20 19 03:00:00 PM Not Available Not Available Not Available atorvasta tin 10 mg tablet TAKE 1 TABLET BY MOUTH ONCE DAILY active Not Available Not Available No t Available citalopra m 10 mg tablet TAKE 1 TABLET BY MOUTH ONCE DAILY 03/30 completed Not Available Not Available Not Available sumatript an 25 mg tablet TAKE 1 TABLET AT ONSET OF HEADACHE . IF NO RELIEF MAY REPEAT 1 TABLET AFTER AT LEAST 2 HOURS. MAX OF 4 TABLETS IN 24 HOURS 03/15 completed Not Available Not Available Not Available metronida zole 0.75 % (37.5 mg/5 gram) vaginal gel Insert 1 applicat orful every day by vaginal route at bedtime for 5 days. 03/30 completed Not Available Not Available Not Available Paxil 20 mg tablet take 1 tablet by oral route every day 11/25 completed Prescrib ed Elsewher e: No Locat ion: [facility] odify By: you steele DateTime : 03/09/20 19 03:00:00 PM Not Available Not Available Not Available lisinopri l 20 mg tablet take 1 tablet by oral route every day 03/09 completed Prescrib ed Elsewher e: Yes Loca tion: [facility] odify By: carl steele DateTime : 01/03/20 18 02:30:00 PM Not Available Not Available Not Available Niaspan 500 mg tablet,ex tended release take 1 tablet by oral route every day at bedtime after a low-fat snack 07/27 completed Prescrib ed Elsewher e: Yes Loca tion: [facility] odify By: charlotte dawn DateTime : 06/04/20 12 01:28:58 PM Not Available Not Available Not Available doxycycli ne monohydra te 100 mg tablet take 1 tablet (100MG) by oral route every day 08/18 completed Prescrib ed Elsewher e: No Locat ion: [facility] odify By: kendra brookeuntsade DateTime : 07/24/20 12 09:37:10 AM Not Available Not Available Not Available tramadol 50 mg tablet TAKE 1 TO 2 TABLETS BY MOUTH EVERY 8 HOURS NEEDED FOR PAIN FOR UP TO 7 DAYS, MAX 5 TABLETS A DAY 03/30 completed Not Available Not Available Not Available triamtere ne 37.5 mg-hydroc hlorothia zide 25 mg capsule TAKE 1 CAPSULE BY MOUTH ONCE DAILY 03/30 completed Not Available Not Available Not Available Macrobid 100 mg capsule take 1 capsule (100MG) by oral route every 12 hours with food 07/20 completed Prescrib ed Elsewher e: No Locat ion: [facility] odify By: tali dawn DateTime : 07/11/20 12 08:30:00 AM Not Available Not Available Not Available alprazola m 0.25 mg tablet TAKE 1 TABLET BY MOUTH ONCE DAILY NEEDED FOR ANXIETY 03/30 completed Not Available Not Available Not Available citalopra m 20 mg tablet TAKE 1/2 (ONE-TIMOTHY F) TABLET BY MOUTH ONCE DAILY 03/15 completed Not Available Not Available Not Available meclizine 25 mg tablet TAKE 1 TABLET BY MOUTH THREE TIMES DAILY NEEDED FOR DIZZINES S 03/30 completed Not Available Not Available Not Available amlodipin e 10 mg tablet TAKE 1 TABLET BY MOUTH ONCE DAILY 09/11 completed Not Available Not Available Not Available Cipro 500 mg tablet take 1 tablet by oral route every 12 hours 09/08 completed Prescrib ed Elsewher e: No Locat ion: [facility] odify By: tmrymarli Jacob ncounter DateTime : 02/18/20 18 11:30:00 AM Not Available Not Available Not Available losartan 25 mg tablet take 1 tablet by oral route every day 06/28 completed Prescrib ed Elsewher e: Yes Loca tion: [facility] odify By: amkuhl Loren ncounter DateTime : 03/09/20 19 03:00:00 PM Not Available Not Available Not Available hydrochlo rothiazid e 12.5 mg capsule TAKE 1 CAPSULE BY MOUTH ONCE DAILY AND STOP TRIAMTER AUDREY/HCTZ 03/30 completed Not Available Not Available Not Available gabapenti n 300 mg capsule 09/11 completed Not Available Not Available Not Available hydrochlo rothiazid e 25 mg tablet take 1 tablet by oral route every day 06/28 completed Prescrib ed Elsewher e: Yes Loca tion: [facility] odify By: carl steele DateTime : 03/09/20 03:00:00 PM Not Available Not Available Not Available mupirocin 2 % topical ointment APPLY A PEA SIZE AMOUNT IN EACH NOSTRIL 2 TIMES A DAY FOR 5 DAYS 03/30 completed Not Available Not Available Not Available gabapenti n 100 mg capsule TAKE 1 CAPSULE BY MOUTH THREE TIMES DAILY 03/30 completed Not Available Not Available Not Available estradiol 0.01% (0.1 mg/gram) vaginal cream Insert 1 gram vaginall y once nightly x 2 weeks, then 2 times weekly 2024 active Not Available Not Available Not Avai lable methylpre dnisolone 4 mg tablets in a dose pack TAKE BY MOUTH DIRECTED ON INSIDE OF PACKAGE 03/30 completed Not Available Not Available Not Available Vitamin D2 1,250 mcg (50,000 unit) capsule take 1 capsule by oral route every week 03/09 completed Prescrib ed Elsewher e: No Locat ion: [facility] odify By: carl steele DateTime : 01/21/20 18 10:30:00 AM Not Available Not Available Not Available ondansetr on 4 mg disintegr ating tablet DISSOLVE 1 TABLET IN MOUTH EVERY 8 HOURS NEEDED FOR NAUSEA FOR VOMITING 03/30 completed Not Available Not Available Not Available losartan 100 mg tablet TAKE 1 TABLET BY MOUTH ONCE DAILY active Not Available Not Available No t Available lisinopri l 2.5 mg tablet take 1 tablet by oral route every day 07/27 completed Prescrib ed Elsewher e: Yes [facility] By: charlotte dawn DateTime : 06/11/20 12 11:30:00 AM Not Available Not Available Not Available doxycycli ne hyclate 100 mg tablet TAKE 1 TABLET BY MOUTH TWICE DAILY FOR 10 DAYS 03/15 completed Not Available Not Available Not Available naproxen 500 mg tablet TAKE 1 TABLET BY MOUTH TWICE DAILY NEEDED FOR PAIN WITH FOOD 03/15 completed Not Available Not Available Not Available Stanback Headache Powder 650 mg oral packet 01/02 completed Prescrib ed Elsewher e: Yes Loca tion: [facility] odify By: mak brookeunter DateTime : 06/04/20 12 01:28:58 PM Not Available Not Available Not Available Depo-Prov era 150 mg/mL intramusc ular syringe inject 1 millilit er (150MG) by intramus cular route every 3 months 08/18 completed Prescrib ed Elsewher e: No Locat ion: [facility] odify By: kendra Jacob ncounter DateTime : 07/24/20 12 11:02:19 AM Not Available Not Available Not Available ezetimibe 10 mg tablet TAKE 1 TABLET BY MOUTH ONCE DAILY 03/30 completed Not Available Not Available Not Available Lexapro 5 mg/5 mL oral solution take 10 millilit er by oral route every day 03/09 completed Prescrib ed Elsewher e: Yes Loca tion: [facility] odify By: carl brookeunter DateTime : 06/04/20 12 01:28:58 PM Not Available Not Available Not Available cyclobenz aprine 5 mg tablet TAKE 1 TABLET BY MOUTH THREE TIMES DAILY NEEDED FOR MUSCLE SPASM 03/30 completed Not Available Not Available Not Available Premarin 0.625 mg/gram vaginal cream Insert 0.5gm PV nightly x 14 nights; then, twice weekly at for maintena nce. 03/30 completed Not Available Not Available Not Available Premarin 1.25 mg tablet take 1 tablet (1.25MG) by oral route every day 08/18 completed Prescrib ed Elsewher e: No Locat ion: [facility] odify By: kendra steele DateTime : 10/09/20 12 11:36:46 AM Not Available Not Available Not Available Lexapro 5 mg tablet take 1 tablet by oral route every day 09/11 completed Prescrib ed Elsewher e: Yes Loca tion: [facility] odify By: you brookeuntsade DateTime : 11/25/19 02:00:00 PM Not Available Not Available Not Available hydrochlo rothiazid e 06/28 completed Not Available Not Available Not Available losartan 06/28 completed Not Available Not Available Not Available Lexapro 06/28 completed Not Available Not Available Not Available ezetimibe 06/28 completed Not Available Not Available Not Available hydrochlo rothiazid e 12.5 mg tablet TAKE 1 TABLET BY MOUTH ONCE DAILY active Not Available Not Available No t Available Lipofen 50 mg capsule take 1 capsule by oral route every day with a meal 01/27 completed Prescrib ed Elsewher e: Yes Loca tion: [facility] odify By: amjohanna steele DateTime : 07/27/20 13 03:30:00 PM Not Available Not Available Not Available Kyleena 17.5 mcg/24 hr (up to 5 years) 19.5 mg intrauter ine device 09/11 completed Prescrib ed Elsewher e: Yes Loca tion: [facility] odify By: tmrymarli steele DateTime : 11/26/19 20 04:00:00 PM Not Available Not Available Not Available Kyleena 06/28 completed Not Available Not Available Not Available Yuvafem 10 mcg vaginal tablet INSERT 1 TABLET VAGINALL Y TWICE A WEEK AT BEDTIME 03/30 completed Not Available Not Available Not Available Vitals Date Recorded Systolic And Diastolic Provider Name and Address Organization Details Last Updated DateTime 03/15/2023 132/70 mm[Hg] Bella Rowley, [facility]- [address], [place], [address], [facility] 03/15/2023 15:21:10 Date Recorded Body height Body mass index (BMI) Body weight Provider Name and Address Organization Details Last Updated DateTime 03/15/2023 154.94 cm 26.8 kg/m2 68118.12 g Denise Burton [facility] 03/15/2023 15:16:38 Date Recorded Body height Body mass index (BMI) Body weight Systolic And Diastolic Provider Name and Address Organization Details Last Updated DateTime 03/30/2025 154.94 cm 28.7 kg/m2 61497.32 g 114/73 mm[Hg] Rizwana Joneston [facility] 03/30/2025 10:37:08 Date Recorded Systolic And Diastolic Provider Name and Address Organization Details Last Updated DateTime 09/11/2021 132/78 mm[Hg] Bella Rowley, [facility]- [address], [place], [address], [facility] 09/11/2021 12:01:55 Date Recorded Body height Body mass index (BMI) Body weight Provider Name and Address Organization Details Last Updated DateTime 09/11/2021 154.94 cm 27.4 kg/m2 32153.89 g Sapna Campbell [facility] 09/11/2021 11:46:32 Date Recorded Body height Body mass index (BMI) Body weight Systolic And Diastolic Provider Name and Address Organization Details Last Updated DateTime 10/25/2021 154.94 cm 27.4 kg/m2 90860.89 g 132/82 mm[Hg] Sapna Campbell [facility] 10/25/2021 10:39:45 Social History Question Answer Notes LastModified by Organizat ion Details LastModified Time Tobacco Smoking Status Never [facility]/08[facility]2020 14:12:57 Are You Blind Or Do You Have Difficulty Seeing? No Information n ot available 06/28/2021 What Is Your Level Of Caffeine Consumption? Occasional Information not available 06/28/2021 In The 14 Days Before Symptom Onset, Have You Had Close Contact With A Laboratory-confirm ed COVID-19 While That Case Was Ill? No Information n ot available 03/15/2023 In The 14 Days Before Symptom Onset, Have You Had Close Contact With A Person Who Is Under Investigation For COVID-19 While That Person Was Ill? No Information not available 03/15/2023 Have You Been To An Area Known To Be High Risk For COVID-19? No Information not available 03/15/2023 Are You Deaf Or Do You Have Serious Difficulty Hearing? No Information not available 06/28/2021 What Type Of Diet Are You Following? REGULAR Information n ot available 06/28/2021 Do You Use Your Seat Belt Or Car Seat Routinely? Yes Information not available 06/28/2021 Do You Have Smoke And Carbon Monoxide Detectors In Your Home? Yes Information not available 06/28/2021 Do You Use Sunscreen Routinely? Yes Information not available 06/28/2021 Sex: Unknown Functional Status Question Answer Note LastModified by Organizat ion Details LastModified Time Do you use any illicit or recreational drugs? No Information not available 06/28/2021 What is your level of alcohol consumption? Occasional Information not available 06/28/2021 Are you able to walk independently without assistance or assistive devices? YESWOREST Information not available 06/28/2021 What is your exercise level? Occasional Information not available 06/28/2021 Mental Status Question Answer Note LastModified by Organization D etails LastModified Time Do you feel stressed (tense, restless, nervous, or anxious, or unable to sleep at night)? [id number] Information not available 06/28/2021 Family History Relationship Description Onset Age of this Age Resolved Age Notes LastModified by Organization Details LastModified Time Mother Diabetes mellitus [email or web address] Not available 2019 14:12:24 Mother Hypertensive disorder [email or web address] Not available 2019 14:12:35 Mother Hypercholest erolemia [email or web address] Not available 2019 14:12:42 Son Diabetes mellitus [email or web address] Not available 2019 14:12:24 Father Hypertensive disorder [email or web address] Not available 2019 14:12:35 Father Heart disease Not available 2020 14:54:12 Medical History Condition Response History of abnormal pap Y Hypertension Y Gynecological History Statement/Question Response Abnormal Pap Y Date of Last Mammogram Was last menstrual period normal N STIs/STDs N Colposcopy 01/20/2018 18 Current Control Method Menopause Are cycles usually normal N Sexually Active? Y Menses Monthly N Age of first menstrual cycle 18 Date of Last Pap Smear 03/15/2023 Sexual Problems? Y LMP Unknown Obstetrics History GPAL:G 2 P 0 0 0 2 Type Value Living 2 Total 2 Past Encounters Encounter ID Performer Location Encounter Start Date Encounter Closed Date Diagnosis/Indication Diagnosis SNOMED-CT Code Diagnosis ICD10 Code Diagnosis IMO Codes Diagnosis Note [id number] Bella Amrik [facility] [address],[facility] [place] [address] 08/08/2020 14:08:10 08/08/2020 17:31:20 Gynecologic examination 92869699 Z01.419 Take Calcium with Vitamin D 12-1500mg daily. Do monthly self breast exams. It is advised to get annual flu shot in the fall and she could obtain at [facility] or [facility] clinic. If you haven't received the Tdap vaccine in the last 10 years you should obtain one as well. Have mammogram yearly, bone density every 2-3 years and colonoscop y every 5-10 years depending on findings and history. Engage in daily exercise of low impact aerobic exercise 45-60 minutes 4-5 times weekly. Avoid tobacco and illicit drugs as well as using moderation with alcohol intake less than 1-2 8 oz beverages daily. This lifestyle behavior pattern will lead to less health conditions and longer life span. If BMI greater than 25 weight watchers or dietary consult advised. Questions have been answered. Patient appears to understand instructio ns, but if you have any further questions call or respond to this email Loves her tamica. No hotflashes Wants a pap/hpv. Loss of hair [id number] L 65.9 C/o of some increase in hair loss. We agreed to evaluate with some lab work. Req given for quest. Also following up with PCP [id number] Bella Rowley , [facility] [address],[facility] [place] [address] 09/11/2021 11:20:26 09/11/2021 12:25:28 Gynecologic examination 08998654 Z01.419 Take Calcium with Vitamin D 12-1500mg daily. Do monthly self breast exams. It is advised to get annual flu shot in the fall and she could obtain at [facility] or [facility] clinic. If you haven't received the Tdap vaccine in the last 10 years you should obtain one as well. Have mammogram yearly, bone density every 2-3 years and colonoscop y every 5-10 years depending on findings and history. Engage in daily exercise of low impact aerobic exercise 45-60 minutes 4-5 times weekly. Avoid tobacco and illicit drugs as well as using moderation with alcohol intake less than 1-2 8 oz beverages daily. This lifestyle behavior pattern will lead to less health conditions and longer life span. If BMI greater than 25 weight watchers or dietary consult advised. Questions have been answered. Patient appears to understand instructio ns, but if you have any further questions call or respond to this email No hotflashes Wants a pap/hpv.De clines std screen Postmenopa usal bleeding 02821579 N95.0 Will get FSH/LH/Est radiolHer levels in 2020 were menopause ranges but we will ensure this is the case since having her IUD removed 06/2021.If menopause levels can consider updated TVUS or monitor & if PMB happens again can complete US at that time. [id number] Bella Rowley [facility] [address],[place] [address] 06/28/2021 15:26:07 06/28/2021 16:40:37 Removal of intrauterine device 10608993 Z30.432 It was explained that she may have bleeding or spotting after the removal of the device today as well. If cannot see the strings of this device we will need to get an US image to make that the device is still in place and not in an unobtainab le position. She expressed understand ing of all the above instructio ns.She is in menopause but has not had 12 consecutiv e months of absence of menses b/c she has had IUD's all this time.Her FSH/LH in 2020 showed menopause ranges.Use condoms if concerned about . [id number] Nelly Mcnally MD [place] [address],[place] [address] 10/17/2021 11:27:53 10/17/2021 11:57:35 Postmenopausal bleeding 53738688 N95.0 [id number] Bella Rowley [facility] [address],[place] [address] 10/25/2021 10:16:45 10/25/2021 12:59:47 Postmenopausal bleeding 25316441 N95.0 TVUS WNLFSH/LH/ Estradiol levels menopause ranges.She has no other instance of PMB-spotti ng since this one episode which happened not too long after her Mirena IUD was removed.To day, we agreed to monitor.If has any further episodes of PMB-spotti ng or otherwise call for appt.Could consider EMBx but her lining on updated TVUS is 2mm; AUB can occur with a lining that is also very thin as well. Time spent in visit is a total of 15 mins with at least 50% of visit consisting of counseling and review of plan of care.Addit ional precaution joo measures were taken to minimize potential exposure to the Covid-19 virus during this patient s visit, including available hand acid strength inspector upon arrive, temperatur e check and being asked a series of screening questions. All staff wore face coverings during this encounter, as well as provided additional cleaning and sanitizing of all surfaces, including countertop s, pens, chairs, door handles, light switches, etc, prior to and following the patient s visit. [id number] Bella Rowley , [facility] [address] [address] 03/15/2023 15:03:01 03/15/2023 15:35:47 Gynecologic examination 73044899 Z01.419 Z11.51 Take Calcium with Vitamin D 12-1500mg daily. Do monthly self breast exams. It is advised to get annual flu shot in the fall and she could obtain at [facility] or [facility] take care clinic. If you haven't received the Tdap vaccine in the last 10 years you should obtain one as well. Have mammogram yearly, bone density every 2-3 years and colonoscop y every 5-10 years depending on findings and history. Engage in daily exercise of low impact aerobic exercise 45-60 minutes 4-5 times weekly. Avoid tobacco and illicit drugs as well as using moderation with alcohol intake less than 1-2 8 oz beverages daily. This lifestyle behavior pattern will lead to less health conditions and longer life span. If BMI greater than 25 weight watchers or dietary consult advised. Questions have been answered. Patient appears to understand instructio ns, but if you have any further questions call or respond to this email Pap/hpv-se ntSTD Screen declinedGe netic Screen discussedC olon Screen orderedDex a Screen [facility] PCPMammo-o rdered Screening mammography 24 166316 Z12.31 Screening for malignant neoplasm of colon 424434466 Z12.11 Dyspareunia 10896914 N94 .10 Opts to trial premarin vag ERTO x 3mos vulva/med check Counseled on the following: Vaginal Dryness: Bothersome symptoms of the vagina and vulva (outer lips of the vagina) increase during and after the menopause transition or may start several years after menopause. The decrease in estrogen with menopause is a major contributo r to vaginal dryness, itching, burning, discomfort , and pain during intercours e or other sexual activity. Vaginal atrophy is the medical term that describes these changes. The genitourin joo syndrome of menopause includes bothersome vaginal atrophy often combined with urinary symptoms. Vaginal atrophy may significan tly affect your quality of life, sexual satisfacti on, and relationsh ip with your partner. Unlike hot flashes, which generally improve with time, vaginal symptoms typically worsen with time because of aging and a prolonged lack of estrogen. Vaginal estrogen therapy An effective and safe treatment, low-dose local estrogen is applied directly to the vagina to restore vaginal health and relieve vaginal dryness and discomfort with sexual activity. Improvemen ts usually occur within a few weeks, although complete relief may take several months. This even may be an option for women with a history of breast or uterine cancer but only after careful considerat ion of risks and benefits with a healthcare provider and oncologist . Government -approved low-dose vaginal estrogen products are available by prescripti on as vaginal creams (used two or three nights/wee k), a vaginal estradiol tablet (used twice/week ), and an estradiol vaginal ring (changed every 3 months). All are highly effective. You may wish to try several different forms and choose the one you prefer. Standard doses of estrogen therapy provided to treat hot flashes also treat vaginal dryness, although some women still benefit from additional low-dose vaginal estrogen treatment. If only vaginal symptoms are present, low doses of estrogen applied to the vagina are recommende d. Resources: https://anand camp.[employer].org/docs /default-s ource/for- women/mn-v aginal-dry ness.pdf [id number] Eagle Delgado MD [place] [address] [address] 03/30/2025 10:07:28 03/30/2025 11:08:46 Gynecologic examination 62037986 Z01.419 [id number] Annual gynecologi chato exam performed. Patient will come back in a year unless there are new symptoms. Suggest Calcium with Vitamin D if not eating in diet. Patient advised to get annual flu shot. Recommend yearly physicals and perform monthly breast exams. Genetic testing is available for patients with family history of cancer. Engage in safe sexual practices, use condoms. Encouraged to have daily exercise. Avoid tobacco and illicit drugs, moderation of alcohol. If BMI greater than 25 dietary consult advised. If you have any questions please call or email. 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 Vaginal estrogen requires a prescripti on from your health care provider, so ask about this if lubricants and moisturize rs are not doing enough to relieve your symptoms. These therapies restore the topmost layer of vaginal cells and increase elasticity and connective tissue when used on a regular basis.Some people worry about possible side effects from hormones. Very low doses of estrogen can be used to treat vaginal dryness when it is in the form of a vaginal cream or insertable tablet, capsule, or ring. A small amount of estrogen is absorbed into the bloodstrea m with these vaginal forms, but when used regularly, the level of estrogen in the blood is in the same range as in postmenopa usal females who are not using vaginal estrogen. As a result, there is a much lower risk of the side effects people sometimes worry about, such as blood clots, breast cancer, and heart attack, compared with other estrogen-c ontaining products (eg, control pills, menopausal hormone therapy). R/B's and most common SEs were also reviewed with understand ing verbalized .Call if any insurance coverage issues. RTO x 3mos Vulvar/Med check Time spent in visit is a total of 30 mins with at least 50% of visit consisting of counseling and review of plan of care. Health Concerns Section Related Observation LastModified by Organization Detai ls LastModified Time None Recorded Concern Status LastModified by Organization Details LastModified Time None Recorded Advance Directives Directive None Recorded Payers Insurance Date Sequence Insurance Name Policy Number Policy Zayas Covered Member ID Zayas Member ID Guarantor Name 03/29/2025 1 [place] [id number] Ina Metzger [id number] Ina Metzger 03/24/2025 PAYMENT PLAN Ina Metzger 03/28/2025 1 [employer] [facility] (POS II) Zeb Metzger [id number] Ina Metzger Notes Date Note Type Note Provider Name and Address Organization Details Recorded Time 1 text/html Annual Plate Hanger Post-MenopausalReported by PatientGenitourinary symptomsFor vaginal bleeding, patient reportspost menopausal bleeding (1- day light had to wear panty liner but did not saturate it. more pink spotting than period like flow. unable to recall anything that might have triggered this. sexually active but no pcb.). For menopausal symptoms, patient reportsno menopausal symptomsandnormal vaginal lubrication. For urinary symptoms, patient reportsno hematuria,no incontinence,no nocturia, andno urinary frequency. For vulva, patient reportsno genital lesionandno vulvar atrophy. For vagina, patient reportsnormal vaginal dischargeandno vaginal atrophy.Breast symptomsFor breast, patient reportsno breast lump,no nipple discharge, andno breast pain.Psychological symptomsFor sexual complaints, patient reportsno sexual complaints. For psychological symptoms, patient reportsno depressionandno anxiety.Preventative measuresFor preventive measures, patient reportsencourage regular mammograms starting age 40,encourage self breast examination,encourage regular exercise,encourage no tobacco use,needs to schedule mammogram, andneeds to schedule colonoscopy (cologuard prescribed by pcp). Bella Rowley, [facility] [address], [place], [address], [facility] 09/11/2021 12:16:54 1 text/html ROS as noted in the HPI Here today to review TVUS. Bella Rowley [facility] [address], [place], [address], [facility] 10/25/2021 12:53:11 3 text/html Annual Plate Hanger Post-MenopausalReported by PatientGenitourinary symptomsFor menopausal symptoms, patient reportsno menopausal symptomsandnormal vaginal lubrication. For vaginal bleeding, patient reportshistory of menopause having occurredandno history of post menopausal bleeding. For urinary symptoms, patient reportsno hematuria,no incontinence,no nocturia, andno urinary frequency. For vulva, patient reportsno genital lesionandno vulvar atrophy. For vagina, patient reportsnormal vaginal dischargeandno vaginal atrophy.Breast symptomsFor breast, patient reportsno breast lump,no nipple discharge, andno breast pain.Psychological symptomsFor sexual complaints, patient reportsno sexual complaints. For psychological symptoms, patient reportsno depressionandno anxiety.Preventative measuresFor preventive measures, patient reportsencourage regular mammograms starting age 40,encourage self breast examination,encourage regular exercise,encourage no tobacco use,needs to schedule mammogram, andneeds to schedule colonoscopy. Bella Rowley [facility] [address], [place], [address], [facility] 03/15/2023 15:35:37 5 text/html Annual [employer]anger Post-MenopausalReported by PatientGenitourinary symptomsFor menopausal symptoms, patient reportsinadequacy of lubrication of vaginal mucosabut reportsno menopausal symptoms. For vaginal bleeding, patient reportshistory of menopause having occurredandno history of post menopausal bleeding. For urinary symptoms, patient reportsno hematuria,no incontinence,no nocturia, andno urinary frequency. For vulva, patient reportsno genital lesionandno vulvar atrophy. For vagina, patient reportsnormal vaginal dischargeandno vaginal atrophy.Breast symptomsFor breast, patient reportsno breast lump,no nipple discharge, andno breast pain.Psychological symptomsFor sexual complaints, patient reportspain during intercoursebut reportsno sexual complaintsandnormal libido. For psychological symptoms, patient reportsno depressionandno anxiety.Preventative measuresFor preventive measures, patient reportsencourage regular mammograms starting age 40,encourage self breast examination,encourage regular exercise, andencourage no tobacco use. Patient presents for annual well woman exam. Patient reports vaginal dryness and pain with intercourse. NICKIE AVELAR, ELIF [address], [place], [address], [facility] 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 08/08/20 20 1 CLOSED Fetus Data First Name Last Name Admitted to NICU Weight (g) Sex Living Outcome Pediatric Complications Fetus ID Race Codes Race Delivery Type [id number] Vaginal Delivery Adi Calculation Initial Adi Date Initial Exam Date Initial Exam Provider Initial Ultrasound Date Last Menstrual Period Date Ultra Sound Weeks Gestation 0 Eighteen To Twenty Week Adi Update Ultra Sound Date Fundal Height At Umbil Quickening Date Ultra Sound Latest Weeks Gestation Final Adi Confirmed By Final Adi Confirmed Date Final Adi Date Ultra Sound Latest Days Gestation 0 0 Menstrual History Last Menstrual Date Menses Monthly On Bcp Conception Prior Menses Frequency Hcg Plus Date Menarche Onset Age Delivery Information Delivery Date Delivery Type Labor Anesthesia Weeks Gestation Incision Type Labor Labor Length Hrs Delivered By Post Complications Tubal Sterilization Discharge Date Comments 8 Discharge Information Feeding Method Contraceptive Method Maternal HG B and HCT Levels Ob Episode Information Episode Created Date Number of Fetuses Patient Bloodtype Patient rh Status Prepregnancy Weight lbs Domestic Partner Domestic Partner Phone Father Name Material 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 08/08/20 20 1 CLOSED Fetus Data First Name Last Name Admitted to NICU Weight (g) Sex Living Outcome Pediatric Complications Fetus ID Race Codes Race Delivery Type [id number] Vaginal Delivery Adi Calculation Initial Adi Date Initial Exam Date Initial Exam Provider Initial Ultrasound Date Last Menstrual Period Date Ultra Sound Weeks Gestation 0 Eighteen To Twenty Week Adi Update Ultra Sound Date Fundal Height At Umbil Quickening Date Ultra Sound Latest Weeks Gestation Final Adi Confirmed By Final Adi Confirmed Date Final Adi Date Ultra Sound Latest Days Gestation 0 0 Menstrual History Last Menstrual Date Menses Monthly On Bcp Conception Prior Menses Frequency Hcg Plus Date Menarche Onset Age Delivery Information Delivery Date Delivery Type Labor Anesthesia Weeks Gestation Incision Type Labor Labor Length Hrs Delivered By Post Complications Tubal Sterilization Discharge Date Comments 1 Discharge Information Feeding Method Contraceptive Method Maternal HG B and HCT Levels
[2025-08-17 07:41] VITALS: BP 145/74; PULSE 65; RESP 18; TEMP 36.2; O2SAT 100
[2025-08-17] MEDS: LACTATED RINGERS 1,000 ML 150 ML IV CONT (07:52)
--- NOTE | 2025-08-17 07:59 | WPDANESEPPF ---
Anes - Initial Pre Proc Eval Procedure: Operation Date: 08/17/25 08:45 Proposed Procedures p Esophagogastroduodenoscopy - Pa Alatorre MD Date/Time: 08/17/25 07:59 Surgeon: Pa Alatorre MD Pre Op Diagnosis: Unspecified foreign body in larynx causing other i Patient Data Age: 60 Gender: F Height: Weight: 69.7 kg Last Vital Signs Temp 36.2 C L 08/17/25 07:41 Pulse 65 08/17/25 07:41 Resp 18 08/17/25 07:41 BP 145/74 H 08/17/25 07:41 Pulse Ox 100 08/17/25 07:41 O2 Del Method Room Air 08/17/25 07:41 Allergies Allergy/AdvReac Type Severity Reaction Status Date / Time naproxen Allergy Mild Rash Verified 08/17/25 07:41 tramadol Allergy Mild Rash Verified 08/17/25 07:41 codeine Allergy Unknown hives Verified 08/17/25 07:41 hydrocodone Allergy Unknown nausea Verified 08/17/25 07:41 Penicillins Allergy Unknown rash Verified 08/17/25 07:41 Sulfa (Sulfonamide Allergy Unknown rash Verified 08/17/25 07:41 Antibiotics) sumatriptan (From Imitrex) AdvReac Mild Sore jaw Verified 08/17/25 07:41 1. [id number] Allergy Unknown hot flashes Uncoded 07/21/25 08:18 ERYTHROMYCIN (Generic Allergy unknown Uncoded 07/21/25 08:18 Allergy) MACROLIDES Allergy unknown Uncoded 07/21/25 08:18 Home Medications ?Medication ?Instructions ?Recorded ?Confirmed ?Type alprazolam 0.25 mg tablet (Xanax) 0.25 mg PO DAILY PRN anxiety #20 08/13/24 08/09/25 Rx tabs hydrochlorothiazide 12.5 mg tablet 12.5 mg PO DAILY #90 tabs 04/28/25 08/09/25 Rx atorvastatin 10 mg tablet (Lipitor) 10 mg PO DAILY #90 tabs 07/12/25 08/09/25 Rx losartan 100 mg tablet 100 mg PO DAILY #90 tabs 08/03/25 08/09/25 Rx Patient hx anesthesia problems: none Family hx anesthesia problems: none Results Review: All pre-operative results and documents have been reviewed as part of the pre-operative evaluation. COUNT INCLUDES THE [facility] Past Medical History Medical History Depression Anxiety Heart murmur Tachycardia Vitamin D deficiency Hypercholesterolemia Hypertension Surgical History Surgical History History of back surgery Family History Family History Mother Diabetes mellitus Hypertension Father , September 2020 Family history of coronary artery disease Social History Social History Social History: Caffeine-non Smoking status: Never smoker Alcohol intake: current Drinks per week: 10 Alcohol use details: BEER Substance use: never Substance use type: does not use Current Housing: Decline to Answer Concerned About Future Housing: Decline to Answer Difficulty Paying Gas/Electric Bills: Decline to Answer Difficulty Paying for Meds: Decline to Answer Currently Unemployed: Decline to Answer Difficulty w/ Childcare or Family Care: Decline to Answer Living arrangements: with family Spiritual care concerns: No Anes - Eval Final PreProcedure Day of Procedure 08/17/25 07:59 Patient weight: overweight Heart: regular rate and rhythm Lungs: clear to auscultation Airway: Mallampati scale class II Neurological: alert and oriented Last oral intake: >/= 8 hours ASA classification: II Emergent: no Anesthetic plan: proceed Anesthesia type and monitoring: general GIVS and standard monitoring Results Review: All pre-operative results and documents have been reviewed as part of the pre-operative evaluation. Informed Consent: The patient's anesthetic plan and its attendant risks and benefits were discussed with the patient/family/POA. Questions were solicited and answers provided to the satisfaction of the patient/family/POA.
--- NOTE | 2025-08-17 08:41 | PM.HPGS ---
History of Present Illness History of Present Illness Consent: Risks, benefits, and alternatives have been discussed and questions answered. Patient agrees to proceed with procedure. Chief complaint: Unspecified foreign body in larynx causing other i Narrative: Ina Metzger is a 60 year old female here for first EGD, intermittent choking after eating, once her daughter had to apply Heimlich maneuver Review of Systems Review of Systems: All systems reviewed & are unremarkable except as noted in HPI and below PMFSH Past Medical History Medical History (Updated 08/17/25 @ 07:59 by Frederic Caraballo MD) Depression Anxiety Heart murmur Tachycardia Vitamin D deficiency Hypercholesterolemia Hypertension Surgical History Surgical History History of back surgery Family History Family History Mother Diabetes mellitus Hypertension Father , September 2020 Family history of coronary artery disease Social History Social History Social History: Caffeine-non Smoking status: Never smoker Alcohol intake: current Drinks per week: 10 Alcohol use details: BEER Substance use: never Substance use type: does not use Current Housing: Decline to Answer Concerned About Future Housing: Decline to Answer Difficulty Paying Gas/Electric Bills: Decline to Answer Difficulty Paying for Meds: Decline to Answer Currently Unemployed: Decline to Answer Difficulty w/ Childcare or Family Care: Decline to Answer Living arrangements: with family Spiritual care concerns: No Meds Home Medications and Allergies Home Medications ?Medication ?Instructions ?Recorded ?Confirmed ?Type alprazolam 0.25 mg tablet (Xanax) 0.25 mg PO DAILY PRN anxiety #20 08/13/24 08/09/25 Rx tabs hydrochlorothiazide 12.5 mg tablet 12.5 mg PO DAILY #90 tabs 04/28/25 08/09/25 Rx atorvastatin 10 mg tablet (Lipitor) 10 mg PO DAILY #90 tabs 07/12/25 08/09/25 Rx losartan 100 mg tablet 100 mg PO DAILY #90 tabs 08/03/25 08/09/25 Rx Allergies Allergy/AdvReac Type Severity Reaction Status Date / Time naproxen Allergy Mild Rash Verified 08/17/25 07:41 tramadol Allergy Mild Rash Verified 08/17/25 07:41 codeine Allergy Unknown hives Verified 08/17/25 07:41 hydrocodone Allergy Unknown nausea Verified 08/17/25 07:41 Penicillins Allergy Unknown rash Verified 08/17/25 07:41 Sulfa (Sulfonamide Allergy Unknown rash Verified 08/17/25 07:41 Antibiotics) sumatriptan (From Imitrex) AdvReac Mild Sore jaw Verified 08/17/25 07:41 1. gbnoep-jzpuakkat-jjhadh Allergy Unknown hot flashes Uncoded 07/21/25 08:18 ERYTHROMYCIN (Generic Allergy unknown Uncoded 07/21/25 08:18 Allergy) MACROLIDES Allergy unknown Uncoded 07/21/25 08:18 Vital Signs Vital Signs - 24 hr 08/17/25 07:41 Temperature 97.2 F L Pulse Rate 65 Respiratory Rate 18 Blood Pressure 145/74 H Pulse Oximetry 100 Oxygen Delivery Room Air Exam Const: General: comfortable and no acute distress HENMT: Face/Nose/Sinus: Normal nares present Eyes: General: appearance normal, both eyes and all related structures Resp: Auscultation: clear to auscultation bilaterally Cardio: Rate: regular rate Rhythm: regular rhythm GI: Inspection: non-distended GI Palp: Yes Soft to palpation Skin: General skin exam: normal color Extrem: General: normal to inspection Psych: Mental Status: mental status grossly normal Assessment and Plan Assessment and plan (1) Choking: Qualifiers: Encounter type: initial encounter Qualified Code(s): T17.308A - Unspecified foreign body in larynx causing other injury, initial encounter Code(s): T17.308A - Unspecified foreign body in larynx causing other injury, initial encounter Status: Acute
--- NOTE | 2025-08-17 08:47 | S_PTH ---
PATIENT: Ina Metzger LOC: [facility] Sorto#:[id number] AGE/SX: 60/F ROOM: RE08/17/[address]: Pa Alatorre MD : [id number] BED: DIS: 08/17/2025 SPEC #: [id number] RECD: 08/17/25 10:04 STATUS: AGGIE REBlanquita #: [id number] ERNESTINE: 08/17/25 08:[address]: Pa Alatorre DEPT: [facility] Surgical RECD BY: Shayan Garcia ENTERED: 08/17/25 10:04 SP TYPE: Surgical OTHR DR: Lo Sharma, SIXTO Tissues: A - Gastric Biopsy B - Esophageal Biopsy Procedures: Hematoxylin and Eosin Stain Gross and Microscopic Level 4 H.Pylori
[2025-08-17 08:52] VITALS: BP 121/78; PULSE 68; RESP 19; O2SAT 100
[2025-08-17 09:02] VITALS: BP 131/80; PULSE 66; RESP 17; O2SAT 100
[2025-08-17 09:12] VITALS: BP 143/84; PULSE 62; RESP 17; O2SAT 100
== END 2025-08-17 09:19 | disposition home or self-care (01) ==
PROVIDERS: Referring Provider Nurse Practitioner; Visit Provider Internal Medicine Gastroenterology
PROC: 0DJ08ZZ Inspection of Upper Intestinal Tract, Via Natural or Artificial Opening Endoscopic (ICD-10-PCS; CPT 43239; principal; 2025-08-17 08:45)
DX: T17.308A Unspecified foreign body in larynx causing other injury, initial encounter (principal); W44.9XXA Unspecified foreign body entering into or through a natural orifice, initial encounter
CPT/HCPCS: 43239; 88305; 88342; J2003; J2704; J7120

== ENCOUNTER 2025-08-27 15:23 | Outpatient (CLI) | payer OTHER, SELFPAY ==
--- NOTE | ~2025-08-27 | MM_ITS ---
EXAMINATION: MM screening [facility] BI w jeremie HISTORY: Screening TECHNIQUE: Craniocaudal and mediolateral oblique 3-D tomosynthesis images were obtained and synthetic 2-D images were generated. CAD analysis was submitted and interpreted. COMPARISON: Comparison to multiple prior studies sequentially, with oldest reviewed study dated 01/20/2018. BREAST PARENCHYMAL COMPOSITION: Not dense: There are scattered areas of fibroglandular density. FINDINGS: There is no evidence of suspicious mass, calcification, or architectural distortion to suggest malignancy in either breast. There has been no suspicious interval change. IMPRESSION: 1. No mammographic evidence of malignancy. 2. Recommend routine screening mammography in one year. BI-RADS Category 1: Negative Reviewed, dictated and finalized at location B.
--- OUTSIDE RECORDS SUMMARY | 2025-08-27 15:27 | XMS_ITS | Clinical Summary ---
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 Active hydroCHLOROthiazid e 12.5 mg tabletIndications: hypertension Take 1 tablet (12.5 mg total) by mouth alemite operator before breakfast 09/14/20 24 Active losartan (COZAAR) 100 mg tabletIndications: hypertension Take 1 tablet (100 mg total) by mouth alemite operator before breakfast 01/07/20 21 Active loratadine (CLARITIN) 10 mg tabletIndications: Allergic Rhinitis Take 1 tablet (10 mg total) by mouth alemite operator before breakfast Active acetaminophen (TYLENOL) 500 mg [...] Description 08/16/2025 1:00 PM CDT Office Visit [facility] [address] Medical Office Building [address] [place] [address] Nancy Mcdonnell NP Cervical stenosis of spinal canal (Primary Dx); Neck pain 08/16/2025 12:34 PM CDT - 08/16/2025 11:59 PM CDT Hospital Encounter [facility] [address] [place] [address] Low back pain, non-specific; Lumbar radiculopathy Discharge Disposition: Discharge to home or self care 08/16/2025 12:34 PM CDT - 08/16/2025 11:59 PM CDT Hospital Encounter [facility] [address] [place] [address] Low back pain, non-specific; Lumbar radiculopathy Discharge Disposition: Discharge to home or self care from Last 3 Months Surgical History Surgery [...] on file 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
== END 2025-08-27 15:24 | disposition home or self-care (01) ==
LOC: ANHFOHIMG 15:25
PROVIDERS: Visit Provider Nurse Practitioner
DX: Z12.31 Encounter for screening mammogram for malignant neoplasm of breast (principal)
CPT/HCPCS: 77063; 77067

== ENCOUNTER 2025-10-19 08:15 | Outpatient (CLI) | payer OTHER, SELFPAY ==
--- NOTE | ~2025-10-19 | US_ITS ---
ULTRASOUND ABDOMEN LIMITED (RIGHT UPPER QUADRANT) Clinical History: K76.0 - Fatty (change of) liver, not elsewhere classified Comparison: Right upper quadrant ultrasound 05/28/2024 Technique: Right upper quadrant sonography Findings: Liver: Micronodular contour. Normal size. Echogenic. No intrahepatic biliary ductal dilatation. Normal hepatopedal flow main portal vein. Common Duct: Normal caliber. 5 mm. Gallbladder: No stones. No wall thickening. No pericholecystic fluid. Pancreas: Unremarkable. Right kidney: Unremarkable. Retrohepatic IVC: Unremarkable. IMPRESSION: 1. Hepatic steatosis and/or hepatocellular disease. Suspect early cirrhosis. Reviewed, dictated and finalized at location R. NGED INSTRUMENT TUNER
== END 2025-10-19 08:16 | disposition home or self-care (01) ==
LOC: MICIMG 08:15
PROVIDERS: Visit Provider Nurse Practitioner
DX: K76.0 Fatty (change of) liver, not elsewhere classified (principal); K76.89 Other specified diseases of liver
CPT/HCPCS: 76705